=== PATIENT | female | born 1965 | race Caucasian/White ===

== ENCOUNTER 2023-08-06 18:09 | Inpatient (IN) | payer SELFPAY ==
[2023-08-06] VITALS (26 sets, daily range): BP systolic 120–168; BP diastolic 59–94; BMI 35.2; BMI 34.6
[2023-08-06 11:38] LABS: HCG, Serum Qualitative Screen Negative
[2023-08-06 11:39] LABS: ALT (SGPT) < 10 U/L (0-35); AST (SGOT) 18 U/L (14-36); Albumin 3.9 g/dl (3.5-5.0); Alkaline Phosphatase 148 U/L (38-126); Blood Urea Nitrogen 8 mg/dl (7-17); Calcium 9.9 mg/dl (8.4-10.2); Carbon Dioxide 24 mmol/L (22-30); Chloride 102 mmol/L (98-107); Glucose 112 mg/dl (70-99); Potassium 3.1 mmol/L (3.5-5.1); Sodium 137 mmol/L (135-145); Total Protein 6.8 g/dl (6.3-8.2); eGFR > 60.00
[2023-08-06 11:47] LABS: % Basophils 0.3 % (0-2); % Eosinophils 3.7 % (0-6); % Immature Granulocytes 0.8 % (0-0.5); % Lymphocytes 19.9 % (20.5-51.1); % Neutrophils 69.3 % (42.2-75.2); Absolute Eosinophils 0.4 10^3/uL (0-0.7); Absolute Immature Granulocytes 0.1 10^3/uL (0-0.05); Absolute Monocytes 0.6 10^3/uL (0.1-0.6); Mean Corp Hgb Conc. 25.6 g/dL (33.0-37.0); Mean Corpuscular Hgb 17.2 pg (27.0-31.0); Mean Corpuscular Volume 67.2 fL (81.0-99.0); Mean Platelet Volume 10.1 fL (7.4-10.4); Nucleated Red Blood Cells % 0.3 %; Platelet Count 467 10^3/uL (130-400); Red Blood Cell Count 1.86 10^6/uL (4.20-5.40); Red Cell Dist. Width 18.7 % (11.5-14.5); White Blood Cell Count 10.1 10^3/uL (4.8-10.8)
[2023-08-06 11:53] LABS: Hematocrit 12.5 % (37.0-47.0); Hemoglobin 3.2 g/dL (12.0-16.0)
--- NOTE | 2023-08-06 12:01 | ED.GENMED ---
History of Present Illness
General
Chief Complaint: Weakness
Time Seen by Provider: 08/06/23 12:01
Travel History
Have you had any contact with someone who has COVID-19?: No
Do you have any symptoms of coronavirus? Fever > 100 degrees, chills, cough, shortness of breath, sore throat, loss of taste or smell, muscle aches, or headache?: No
History of Present Illness
History of Present Illness:
HPI: Patient presents due to weakness. This been going on for several months. She says that this is caused shortness of breath as well. She says that she has had vaginal bleeding over the past couple months. She has not been to any doctors in
the past 7 years or so.
EXAM:
GENERAL: Appears generally weak and pale
HEENT: Moist oral mucosa, conjunctival pallor
CARDIOVASCULAR: No murmurs, mildly tachycardic heart rate with regular rhythm, No chest wall tenderness
PULMONARY: No respiratory distress, breath sounds are clear and equal
ABDOMEN: Soft with no peritoneal signs, no tenderness, negative rectal examination with brown stool
: I performed a brief bimanual exam and could not palpate any definite cervical mass however there was a very large amount of blood in the vagina during examination
NEUROLOGIC: Excellent strength all extremities, no coordination deficits
PSYCHIATRIC: Appropriate mental status, normal insight and judgement
EXTREMITIES: Nontender, no edema, moves all extremities equally
SKIN: Pale
ED COURSE:
12:15 PM: I initially evaluated patient
NUMBER AND COMPLEXITY OF PROBLEMS ADDRESSED AT THE ENCOUNTER
� Chronic conditions affecting care: History of hypothyroidism, has been told that she has been 'anemic in the past'
� Acute Exacerbation and/or Progression of Chronic Illness: This is an acute problem
� Differential Diagnosis includes: Symptomatic anemia, uterine mass/bleeding,
AMOUNT AND/OR COMPLEXITY OF DATA TO BE REVIEWED AND ANALYZED
� I performed an independent evaluation of and my interpretation is:
EKG: Sinus 96, axis deviation, frequent ventricular ectopy, QTc is 495
CT:
X-rays:
Laboratory Studies: Hemoglobin 3.2, hematocrit 12.5
Other: Ultrasound suggests cervical mass
� Review of other/old records: No old records available for review in [facility]
� Clinical information was obtained by an independent historian: Spoke to at bedside
� Prescriptions/Medications Considered but not given:
� Further testing considered but not performed:
RISK OF COMPLICATIONS AND/OR MORBIDITY OR MORTALITY OF PATIENT MANAGEMENT
� Social determinants of health affecting care: Lives at home
� Discussion with other providers: Hospitalist for admission at 12:45 PM; I also spoke to Dr. Tran who had planned on seeing the patient in the ED but called away for delivery. Pending Guynn consult as of 4:10 PM but
ultimately will be seen by Repair Technician [place] while in the hospital as a political consultant.
� Escalation of care including admission/observation vs risk of discharge considered: The patient's initial hemoglobin was only 3.2. Her heart rate spontaneously came down to under 100 and she has been normotensive to
hypertensive. She was given blood emergently.
Phy Exam
Physical Exam
Physical Exam:
See HPI
Course
Orders/Labs/Results
Orders:
Orders
08/06/23 11:03
Test Result ONCE
08/06/23 11:09
Type+Screen Urgent
Complete Blood Count/With Diff Urgent
Comprehensive Metabolic Panel Urgent
Ferritin Urgent
Comment: ADD ON
Free T4 Urgent
HCG, Serum Qualitative Screen Urgent
Iron Urgent
Comment: ADD ON
TSH Reflex To Free T4 Urgent
Comment: ADD ON
Total Iron Binding Urgent
Comment: ADD ON
08/06/23 11:57
EKG [Electrocardiogram (*1)] Urgent
Reason for Study: Fatigue / Weakness
EKG- Treatment ONCE
08/06/23 12:02
Add On- LAB Urgent
Tests Added?: iron panel, TIBC, ferritin
08/06/23 12:07
CBC/No Diff [Complete Blood Count/No Diff] Urgent
08/06/23 12:10
* Blood Bank Products Urgent
Blood Bank Products: *Packed RBC Leuko(PRBC's)
Quantity: 4
Transfuse Today: Yes
Reason: Anemia
08/06/23 12:11
US Pelvis W Transvag Combined Urgent
Reason For Exam: severe anemia; VB
08/06/23 12:39
Add On- LAB Urgent
Tests Added?: tsh reflex fT4
08/06/23 12:43
Potassium Chloride [KCl] 40 meq PO NOW STA
Abnormal Lab Results
08/06/23 08/06/23
11:09 12:07
RBC 1.86 L 10^6/uL 2.10 L 10^6/uL
(4.20-5.40) (4.20-5.40)
Hgb 3.2 L* g/dL 3.5 L* g/dL
(12.0-16.0) (12.0-16.0)
Hct 12.5 L* % 13.6 L* %
(37.0-47.0) (37.0-47.0)
MCV 67.2 L fL 64.8 L fL
(81.0-99.0) (81.0-99.0)
MCH 17.2 L pg 16.7 L pg
(27.0-31.0) (27.0-31.0)
MCHC 25.6 L g/dL 25.7 L g/dL
(33.0-37.0) (33.0-37.0)
RDW 18.7 H % 18.7 H %
(11.5-14.5) (11.5-14.5)
Plt Count 467 H 10^3/uL 476 H 10^3/uL
(130-400) (130-400)
Abs Immat Gran (auto) 0.1 H 10^3/uL
(0-0.05)
Absolute Neuts (auto) 7.0 H 10^3/uL
(1.4-6.5)
Immature Gran % 0.8 H %
(0-0.5)
Lymphocytes % 19.9 L %
(20.5-51.1)
Potassium 3.1 L mmol/L
(3.5-5.1)
Creatinine 0.5 L mg/dL
(0.6-1.0)
Glucose 112 H mg/dl
(70-99)
Iron 34 L ug/dl
(37-170)
% Saturation 6 L %
(20-50)
Ferritin 3.7 L ng/ml
(11.1-264.0)
Alkaline Phosphatase 148 H U/L
(38-126)
TSH (Reflex) 21.80 H uIU/ml
(0.47-4.68)
Crossmatch IS Only See Detail
08/06/23 12:07
08/06/23 11:09
Vital Signs
Initial and Last Documented VS:
Initial Vital Signs
Temp Pulse Resp BP Pulse Ox
98.2 F 106 16 120/65 95
08/06/23 10:59 08/06/23 10:59 08/06/23 10:59 08/06/23 10:59 08/06/23 10:59
Last Documented Vital Signs
Temp Pulse Resp BP Pulse Ox
100.1 F 83 15 136/70 100
08/06/23 16:04 08/06/23 16:04 08/06/23 16:04 08/06/23 16:04 08/06/23 16:04
*Critical Care Note
Total Time (30-74mins, 75-104mins- exclusive of procedures): 60 minutes
comment:
The patient presents with critically low hemoglobin and was emergently transfused�I have ordered 4 units. She has remained hemodynamically stable. She did have vaginal bleeding earlier over the past several months. Cervical mass found on imaging.
Gynecology has been emergently consulted. I had several discussions with gynecology and internal medicine.
ED Attending Note
-
Portions of this chart may have been created with voice recognition software.� Occasional wrong word or��sound alike� substitutions may have occurred due to the inherent limitations of voice recognition software.
Discharge Plan
Departure
Patient Disposition: Admit
Date of Disposition: 08/06/23
Time of Disposition: 12:46
Presentation/result/management discussed w/ accepting MD/DO: Hospitalist
Discharge Problem:
Symptomatic anemia
Prescriptions:
No Action
ibuprofen [Advil] 200 mg Tablet
600 mg PO TIDPRN PRN (Reason: mild pain)
Referrals:
NONE,* [Family Provider] -
Interventions
Interventions:
*Risk Screen - Suicide Last Done: 08/06/23 12:10
*General Assessment Last Done: 08/06/23 12:04
*Neglect/Abuse Screening Last Done: 08/06/23 12:18
ED- Fall Risk Assessment Last Done: 08/06/23 12:04
*ED COVID-19 Vaccine History Last Done: 08/06/23 12:10
ED- Cardiac Assessment Last Done: 08/06/23 12:11
ED- Neurological Assessment Last Done: 08/06/23 12:12
ED- Pulmonary Assessment Last Done: 08/06/23 12:12
[2023-08-06 12:09] LABS: Anisocytosis 1+; Hypochromasia 3+; Normal RBC Morphology No; Ovalocytes 2+; Polychromasia 1+
[2023-08-06 12:10] LABS: Acanthocytes FEW; Tear Drop Red Blood Cells FEW
--- NOTE | 2023-08-06 12:26 | EDRN ---
Per ER Dr Roberto verbal order, the pt was given a large cup of water to drink in order to fill her bladder for ordered pelvic ultrasound. The pt was told not to get out of bed or exert herself due to critically low hemoglobin. the pt
verbalized understanding of all instructions. family is present at bedside. this TALLIER will continue to monitor this pt closely.
[2023-08-06 12:28] LABS: Mean Corp Hgb Conc. 25.7 g/dL (33.0-37.0); Mean Corpuscular Hgb 16.7 pg (27.0-31.0); Mean Corpuscular Volume 64.8 fL (81.0-99.0); Mean Platelet Volume 9.6 fL (7.4-10.4); Platelet Count 476 10^3/uL (130-400); Red Cell Dist. Width 18.7 % (11.5-14.5); White Blood Cell Count 10.5 10^3/uL (4.8-10.8)
[2023-08-06 12:34] LABS: Iron 34 ug/dl (37-170)
[2023-08-06 12:43] LABS: Percent Saturation 6 % (20-50); Total Iron Binding Capacity 490 ug/dl (265-497)
[2023-08-06 12:48] LABS: Hematocrit 13.6 % (37.0-47.0); Hemoglobin 3.5 g/dL (12.0-16.0)
[2023-08-06] MEDS: KCL 40 MEQ PO (13:13)
--- NOTE | 2023-08-06 14:00 | EDRN ---
the pt had a large blood clot and approx 2 cups of vaginal bleeding suddenly pass vaginally at this time, blood is bright red. this FINANCE MGR brought ER Dr Roberto to the bedside immediately. Viry care was provided to the pt and the pt was placed
in an adult brief. vial signs are within normal limits. this FINANCE MGR will continue to monitor the pt.
[2023-08-06 14:43] LABS: Ferritin 3.7 ng/ml (11.1-264.0)
[2023-08-06 16:52] LABS: Glucose - Point of Care 104 mg/dl (70-99)
[2023-08-06 17:03] LABS: Free T4 0.85 ng/dl (0.78-2.19)
--- NOTE | 2023-08-06 17:52 | HPS.HSE ---
Addendum entered and electronically signed by Diana Gibson MD 08/06/23 18:21:
I saw and examined the patient.
The BAG BAILER or PA's note was reviewed and I agree with the note.
Comment:
Pale
Abdomen: Soft, NT / Bowel sounds present
Extremities: No edema, normal pulses
Watched pelvic exam with gynecology cervical mass, bleeding with clots
Pelvic ultrasound-There is a 5.2 centimeter vascular hypoechoic mass at the cervix which is high level suspicion for cervical carcinoma.
Endometrial carcinoma is less likely but included in the differential diagnosis
# 57-year-old with fatigue presented with severe anemia
Severe symptomatic chronic blood loss anemia
Transfuse 4 units and follow hemoglobin if needed give more blood
# Vaginal bleeding concerning for cervical cancer
SOIL FERTILITY EXTENSION SPECIALIST consult appreciated
SOIL FERTILITY EXTENSION SPECIALIST oncology consult
CT of the chest abdomen pelvis
Patient does not report much weight loss
Vaginal packing being placed
Vigil catheter placed because of that
Hemodynamically stable
Iron deficiency IV iron
# Hypokalemia-replace potassium and check mag
# Elevated TSH
Repeat in the morning before starting thyroid hormones
# Mild thrombocytosis likely secondary to severe anemia
# Slightly prolonged QTc likely secondary to hypokalemia. Check magnesium. Following daily
No symptoms
# SCDs for DVT prophylaxis
# Full code
Discussed with SOIL FERTILITY EXTENSION SPECIALIST at bedside
Original Note:
Family Physician
-
Family Physician: * NONE
Chief Complaint
-
Weakness and Shortness of Breath
History of Present Illness
Patient is a 57 y/o female with PMH of fibromyalgia and chronic fatigue who presents complaining of weakness, SOB, and vaginal bleeding since February 2023. Patient reports having daily vaginal bleeding and passing many large clots about every 7
days which is followed by 45 minutes of steady thin bleeding. She has had worsening SOB with minimal exertion -- she shaved her hair in May due to inability to brush her hair. She has not received medical care in the past 7 years and her last
PAP smear was 20 years ago which she says was normal. She has been taking Ibuprofen 600 mg BID x 10 days for worsening lower abdominal cramping. Work-up in ED revealed significant anemia as well as cervical mass. Hospitalist group was asked to
evaluate the patient for admission to the hospital.
Medical History
Past Medical History
Past Medical History: Reports Other
Additional Past Medical History:
Fibromyalgia
Hypothyroidism
Past Surgical History: Reports Tonsilectomy
Social History
Tobacco: Former Smoker (Quit about 9 years ago)
Drug: Marijuana
Family History
Family History: Other (Materal Grandmother and Aunts with Breast CA)
Allergies / Home Medications
Allergies reflects when Allergies were last updated in [facility].
Home Medications with original date entered in [facility]
Allergy/Medication List:
Allergies
Allergy/AdvReac Type Severity Reaction Status Date / Time
No Known Allergies Allergy Verified 08/06/23 11:02
Home Medications
ibuprofen 200 mg tablet (Advil) 600 mg PO TIDPRN PRN mild pain 08/06/23
Review of Systems
-
A 12 point ROS was completed and negative except as noted: Yes
Constitutional: Denies Fever or Chills
Respiratory: Reports Trouble Breathing; Denies Cough
Cardiac: Denies Chest Pain or Palpitations
: Reports See HPI
Neurological: Reports Dizzy and Weakness
Physical Exam
Vital Signs
Vital Signs
Temp Pulse Resp BP Pulse Ox
100.1 F 98 13 136/71 100
08/06/23 17:44 08/06/23 17:44 08/06/23 17:44 08/06/23 17:44 08/06/23 17:44
Physical Exam
General: Comfortable and Conversant
HEENT: Anicteric and Moist mucous membranes
Respiratory: Clear and Non Labored Respirations
Cardiac: S1/S2 and Regular Rhythm
GI: Soft and Non Tender
Rectal: Hem Negative (Per ED Provuder)
Genito-urinary: Deferred by me
Musculoskeletal: No Clubbing, No Cyanosis and No Edema
Skin: Warm and Dry
Neuro: Awake, Alert, Oriented and Nonfocal/grossly intact
Laboratory Results
-
08/06/23 11:09
Laboratory Results
Total Bilirubin 1.0 mg/dl (0.2-1.3) 08/06/23 11:09
AST 18 U/L (14-36) 08/06/23 11:09
ALT < 10 U/L (0-35) 08/06/23 11:09
Alkaline Phosphatase 148 U/L (38-126) H 08/06/23 11:09
Data Reviewed
-
Lab Data: Labs Reviewed by me
Impression/Plan
-
Severe Symptomatic Blood Loss Anemia
-Transfuse 4 units PRBCs
-Monitor Hgb closely
Vaginal Bleeding, Abd US raises concern for Cervical Cancer
-Consult Gynecology and SOIL FERTILITY EXTENSION SPECIALIST Oncology
-Check Chest/Abd/Pelvis CT scan
Hypokalemia
-Replace potassium
-Check magnesium
Elevated TSH, possible sick euthyroid vs hypothyroid
-Recheck TSH with Free T4 in AM
DVT proph: SCDs
Code Status: Full Code
[2023-08-06 18:00] LABS: Magnesium 2.3 mg/dl (1.6-2.3)
[2023-08-06] MEDS: OMNIPAQUE 50 ML PO (18:34)
[2023-08-06 18:35] LABS: Folate 9.7 ng/ml (2.76-20); Vitamin B12 408 pg/ml (239-931)
--- NOTE | 2023-08-06 18:45 | PTCARENOTE ---
Received pt from ER.Pt awake, alert and oriented x3. Pt has no c/o pain just some discomfort from vaginal packing, tolerable at this time. VSS 100% on RA. NSR with PVCs on tele. Pt has vera cath in place, draining yellow urine, Vaginal bleeding
noted, aware, Brief in place to monitor bleeding. Pt oriented to room, call brown within reach, plan of care ongoing.
[2023-08-06 20:16] LABS: Hematocrit 24.4 % (37.0-47.0)
--- NOTE | 2023-08-06 20:21 | CON.MD ---
Consultation - Medical
-
57 yo female seen in ED earlier today presented with dizziness, lightheadedness and c/o abnormal vaginal bleeding for months. Found to have severe anemia with hgb 3.2 on admit. Pelvic US demonstrated a cervical mass and ED doctor also reported
pt noted to have some vaginal bleeding after returning from ultrasound and mass was noted on vaginal exam performed by ED MD. Reports some pelvic cramping, no significant abdominal pain, no back pain, difficulty with urination or BM. Denies
constipation, nausea, vomiting. Admits to decreased appetite and some unintended weight loss.
Full consult will be dictated
Pt reports having abnormal uterine bleeding lasting most days of the month since Jan 2023. Heavy and clotty at times. She has not had any routine check cashier care for over 20 yrs. Does not follow with PCP.
Reports became increasingly weak, with dyspnea on exertion and difficulty standing up. Came to ED.
PMH: fibromyalgia, chronic fatigue, hypothyroidism (not seeing any provider for this/no meds), hypoglycemia
PSH: wisdom teeth, tympanoplasty, myringotomy tubes, T&A
OBHx: 2 - 28 and 23 yrs ago
NKDA
Meds: none
Sochx: reports using cannabis 1-2 times daily for fibromyalgia, denies tobacco, alcohol only a few times yrly.
Famhx: 2 maternal aunts and MGM-breast cancer
ROS: does not add to above HPI
PE:
Pale appearing pleasant female
VS:
abd: soft, rotund, nontender, nondistended
vulva: no lesions
Speculum exam: some bright red blood in vagina, moderate amount. Tumor noted distending cervix. Barrel shaped cervix. Cervical mass approx 5-6 cm by palpation. Tumor extends close to vaginal side wall on right.
There is some tumor free space posterior and on left.
Uterus nontender, not enlarged.
No adnexal fullness noted.
Labs reviewed. Admission hgb 3.2 hcg neg
TSH 21, T4 normal
Pelvic US: uterus 7.9 x2.8 x 3.6 cm with suboptimal visualization of endometrial lining. Cervix has hypoechoic mass 5.2 x 4.4 x 4.9 cm. No adnexal mass. Ovaries normal size, no mass. No pelvic free fluid.
Assessment:
1. Cervical mass/ suspected cervical carcinoma
2. vaginal bleeding related to above
3. severe profound anemia related to chronic blood loss related to tumor bleeding
4. hypohyroidism
5. EKG with prolonged QT, NSR and some PVCs.
Plan:
1. Pap collected, vera 14 Georgian placed and vaginal packing placed for tamponade.
2. Consulted and spoke with Dr. Knowles. Ordered CT chest, Abd/pelvis with Oral and IV contrast to look for metastatic disease, tumor involvement. Ordered additional labs: amylase, lipase, b12, folate, PT/INR.
Pt will need Exam under anesthesia, cystoscopy, sigmoidoscopy, cervical bx. Dr. Knowles will be performing.
3. Med onc consult-tiger texted Dr. Rojas-aware.
4. Will need cardiac clearance for surgery. Can consult tomorrow.
5. Will need mammogram in near future.
Reviewed findings with Nolvia and emotional support provided. I did discuss cervical tumor and likelihood of cancer dx. Her had a stroke and she is primary caregiver for her family. She is concerned about them.
Reviewed with hospitalist Marleny ALVARADO and also Dr. Hernandez.
time 60 min, face to face, consulting time, documentation and coordinating care.
[2023-08-06 21:06] LABS: Amylase 43 U/L (30-110); Lipase 57 U/L (23-300)
[2023-08-06 21:31] LABS: Glucose - Point of Care 103 mg/dl (70-99)
[2023-08-06 21:39] LABS: Urine Albumin Negative (Neg - Trace); Urine Bilirubin Negative (Negative); Urine Character Clear (Clear); Urine Color Yellow; Urine Glucose Negative (Negative); Urine Ketone Negative (Negative); Urine Leukocyte 2+ (Negative); Urine Nitrite Negative (Negative); Urine Occult Blood 1+ (Negative); Urine Specific Gravity 1.005 (<1.030); Urine Urobilinogen Negative (Neg - 1+)
[2023-08-06 21:47] LABS: INR 1.19; PT 15.2 Sec (11.4-14.6)
[2023-08-06 21:53] LABS: Urine Bacteria Moderate (Negative); Urine Squamous Cell 0-2 /LPF (Few); Urine White Cell 21-25 /HPF (0-5)
[2023-08-07 01:05] VITALS: BP 135/63
[2023-08-07 03:15] VITALS: BP 115/62
[2023-08-07 07:00] VITALS: BP 134/74
[2023-08-07 07:14] LABS: Hematocrit 25.2 % (37.0-47.0); Hemoglobin 8.3 g/dL (12.0-16.0); Mean Corp Hgb Conc. 32.9 g/dL (33.0-37.0); Mean Corpuscular Hgb 24.9 pg (27.0-31.0); Mean Platelet Volume 9.8 fL (7.4-10.4); Platelet Count 339 10^3/uL (130-400); Red Blood Cell Count 3.34 10^6/uL (4.20-5.40); Red Cell Dist. Width 18.6 % (11.5-14.5); White Blood Cell Count 11.9 10^3/uL (4.8-10.8)
[2023-08-07 07:20] LABS: Mean Corpuscular Volume 75.4 fL (81.0-99.0)
[2023-08-07 08:28] LABS: Blood Urea Nitrogen 5 mg/dl (7-17); Calcium 8.5 mg/dl (8.4-10.2); Carbon Dioxide 22 mmol/L (22-30); Chloride 108 mmol/L (98-107); Estimated Creatinine Clearance 116 ml/min; Glucose 96 mg/dl (70-99); Magnesium 2.2 mg/dl (1.6-2.3); Potassium 3.4 mmol/L (3.5-5.1); Sodium 134 mmol/L (135-145); eGFR > 60.00
--- NOTE | 2023-08-07 09:02 | CON.ONC ---
Addendum entered and electronically signed by Elias Bowie DO 08/07/23 14:04:
Chart reviewed and patient examined independently. Agree with impression and plan as outlined by VÍCTOR. Anticipate further evaluation by ADJUNCT ENGLISH INSTRUCTOR oncology in the operating room tomorrow. Replete iron deficiency and transfuse to maintain hemoglobin
greater than 7.5 g/dL.We put her on IV iron.
Original Note:
Impression
Impression
Severe symptomatic blood loss anemia
Cervical mass
Vaginal bleeding
Thrombocytosis
Hypothyroidism
Iron deficiency
Weakness
Plan
Plan
Hgb 8.3 s/p 4units blood
Transfuse as needed to maintain Hgb >7.5
CBC with diff daily, serial H/H
Monitor for bleeding
B12, folate supplement
IV iron ordered
Print Shop Stenographer/Onc consult, PRESSING DEPARTMENT SUPERVISOR following
Plan for full exam under anesthesia with biopsy
Await cervical biopsy
Emotional support
Psych evaluation
Will need mammogram arranged outpatient
We will follow
Patient History
History of Present Illness
Nolvia Collins is a 57 year old female who presented to the ER yesterday, 08/06, with complaints of fatigue, profound weakness, SOB, and vaginal bleeding since Feb 2023. She states she has been passing large clots weekly with steady vaginal
bleeding that follows. She has not received medical care in at least 7 years. She has been taking Ibuprofen as needed for lower abdominal cramping. She was profoundly anemic on presentation with Hgb of 3.2. She received 4 units of blood thus far
with adequate response. PRESSING DEPARTMENT SUPERVISOR was consulted due to large mass within the cervix concerning for neoplasm seen on imaging. She admits to unintentional weight loss and poor appetite. She has been admitted for further evaluation and treatment.
Past-Medical/Surgical History
Fibromyalgia w/ medical marijuana use
Chronic fatigue
Chronic pain
Hypothyroidism
Hx Tympanoplasty
Hx Myringotomy tubes
Strong family hx of cancer
Progressive weakness
Patient Medication
Medication Instructions Recorded Confirmed Last Taken Type
ibuprofen 200 mg tablet (Advil) 600 mg PO TIDPRN PRN mild pain 08/06/23 08/06/23 08/05/23 History
Active Medications
Generic Name Dose Route Start Last Admin
Trade Name Freq PRN Reason Stop Dose Admin
Acetaminophen 650 mg 08/06/23 18:56
Acetaminophen 325 Mg Tablet PO 09/03/23 18:55
Q4HPRN PRN
mild pain/ fever>100.5F
Ferric Sodium Gluconate 110 mls @ 110 mls/hr 08/07/23 14:00
Complex 125 mg/ Sodium IV 08/11/23 14:59
Chloride DAILY@1400 LIZZIE
Sodium Chloride 0 flush 08/06/23 19:00
Sodium Chloride 0.9% (Flush) Syringe IV 09/03/23 18:59
PER PROTOCOL LIZZIE
Review of Systems
-
History Source: Patient and Coordinated Provider
Constitutional: Reports No Appetite, Fatigue and Weakness
EENT: Reports No Symptoms
Respiratory: Reports No Symptoms
Cardiac: Reports No Symptoms
GI: Reports Abdominal Pain
Breast: Reports N/A
: Reports Vaginal Bleeding
Musculoskeletal: Reports Edema
Skin: Reports No Symptoms
Neuro: Reports Weakness
Endocrine: Reports No Symptoms
Hematologic/Lymphatic: Reports No Symptoms
Allergy / Immunology: Reports No Symptoms
Psych: Reports No Symptoms
Physical Exam
-
Patient is resting in bed. Nursing performing AM care. patient incontinent of stool. patient reports mildly crampy lower abdominal discomfort. she is requesting Ibuprofen.
General: Well Developed, Well Nourished, No Apparent Distress, Comfortable, Conversant and Appears Chronically Ill
HEENT: Negative Jaundice
Cardiology: S1 and S2
Pulmonary: Clear
GI: Normal Bowel Sounds
Genito-Urinary: Vigil
Musculoskeletal: Edema, Right Lower Extrem (+1) and Edema, Left Lower Extrem (+1)
Extremities: Pulses Present
Neurology: Non Focal
Skin: Warm, Dry and Other (pallor)
Psych: Calm and Other (tearful)
Labs
Lab Results
WBC 11.9 10^3/uL (4.8-10.8) H 08/07/23 06:58
RBC 3.34 10^6/uL (4.20-5.40) L 08/07/23 06:58
Hgb 8.3 g/dL (12.0-16.0) L 08/07/23 06:58
Hct 25.2 % (37.0-47.0) L 08/07/23 06:58
MCV 75.4 fL (81.0-99.0) L D 08/07/23 06:58
MCH 24.9 pg (27.0-31.0) L 08/07/23 06:58
MCHC 32.9 g/dL (33.0-37.0) L 08/07/23 06:58
RDW 18.6 % (11.5-14.5) H 08/07/23 06:58
Plt Count 339 10^3/uL (130-400) D 08/07/23 06:58
MPV 9.8 fL (7.4-10.4) 08/07/23 06:58
Abs Immat Gran (auto) 0.1 10^3/uL (0-0.05) H 08/06/23 11:09
Absolute Neuts (auto) 7.0 10^3/uL (1.4-6.5) H 08/06/23 11:09
Absolute Lymphs (auto) 2.0 10^3/uL (1.2-3.4) 08/06/23 11:09
Absolute Monos (auto) 0.6 10^3/uL (0.1-0.6) 08/06/23 11:09
Absolute Eos (auto) 0.4 10^3/uL (0-0.7) 08/06/23 11:09
Absolute Basos (auto) 0.0 10^3/uL (0-0.2) 08/06/23 11:09
Immature Gran % 0.8 % (0-0.5) H 08/06/23 11:09
Neutrophils % 69.3 % (42.2-75.2) 08/06/23 11:09
Lymphocytes % 19.9 % (20.5-51.1) L 08/06/23 11:09
Monocytes % 6.0 % (1.7-9.3) 08/06/23 11:09
Eosinophils % 3.7 % (0-6) 08/06/23 11:09
Basophils % 0.3 % (0-2) 08/06/23 11:09
Creatinine 0.5 mg/dL (0.6-1.0) L 08/07/23 06:58
Vital Signs
Vital Signs
Temp Pulse Resp BP Pulse Ox
98.4 F 73 18 134/74 98
08/07/23 07:00 08/07/23 07:00 08/07/23 07:00 08/07/23 07:00 08/07/23 07:00
08/06 Transvaginal US: There is a 5.2 centimeter vascular hypoechoic mass at the cervix which is high level suspicion for cervical carcinoma.
Endometrial carcinoma is less likely but included in the differential diagnosis
08/06 CT c/a/p: Large mass within the lower uterine segment/cervix suspicious for neoplasm.No evidence for metastatic disease in the chest, abdomen or pelvis.Mass-like soft tissue expansion of the lower uterine segment/cervix measuring up to 5.8 x
6.6 x 5.2 cm. Mild adjacent edema.
[2023-08-07] MEDS: VITAMIN B-12 1000 MCG PO (09:55)
[2023-08-07] MEDS: FOLVITE 1 MG PO (09:55)
--- NOTE | 2023-08-07 10:27 | CM ---
Patient seen bedside, initial assessment completed. Patient reports she resides in a multiple story home with her , son, and parents. Patient denies DME, VN, or SNF. Patient reports she has not seen a PCP in years and is interested in a list
of local PCP's. Patient confirmed pharmacy is [facility] in [place]. CM received consult for insurance issues, per patient, she did have [employer] [facility] but did not complete the needed documentation and the insurance lapsed. CM spoke with Bhavya
from [facility], provided patients account number for Bhavya to look into. CM will continue to follow for discharge planning needs.
Plan; watch for needs upon d/c, [facility] aware of patient
[2023-08-07 11:00] VITALS: BP 132/71
[2023-08-07] MEDS: TYLENOL 650 MG PO (12:26)
[2023-08-07] MEDS: FERRLECIT 110 MG IV (14:03)
[2023-08-07] MEDS: ULTRAM 50 MG PO (14:03)
[2023-08-07 15:16] VITALS: BMI 34.6
--- NOTE | 2023-08-07 15:19 | PTCARENOTE ---
Pt left the floor via stretcher for an US and Echo for pre-op testing.
--- NOTE | 2023-08-07 16:34 | CON.CAR ---
Addendum entered and electronically signed by Huyen Ko, 08/08/23 12:01:
Updated patient with echocardiogram results
Addendum entered and electronically signed by Huyen Ko, 08/07/23 17:31:
I saw and examined the patient.
The Wet Cotton Feeder's note was reviewed and I agree with the note.
Comment: Nolvia is a 57-year-old female with past medical history of fibromyalgia and hypothyroidism who presented to ER for evaluation of dizziness, lightheadedness and vaginal bleeding.� She was found to be severely anemic with hemoglobin of
3.2 on admission.� She had pelvic ultrasound which showed cervical mass, this was confirmed on pelvic exam in ER, concern for cervical carcinoma.� Cardiology evaluation requested Preoperative cardiac risk assessment prior to cervical biopsy, D&C,
cystoscopy, and proctoscopy which is planned for tomorrow, 08/08/[address] Benjy Knowles.� She has no acute cardiac complaints.� She has no history of known cardiovascular disease. She is a lifelong non-smoker. Until recently she was active with
regular walking and greenhouse technician/activities without cardiac symptoms. EKG checked on arrival with mildly prolonged QTc at 495ms in the setting of severe anemia and hypokalemia. No history of anesthesia related complications although no recent
surgeries. No family history for premature coronary artery disease, cardiomyopathy, or sudden cardiac
General: No acute distress, AAOX3
Neck: Negative JVD. No bruit
Heart: Regular, Negative S3 positive S1/S2, Negative S4, No murmur
Lungs: CTA b/l, negative wheezes/rales/rhonchi
Abd: Positive BS, NT/ND, neg rebound/rigidity/guarding
Ext: Negative cyanosis/clubbing/edema
Neuro: nonfocal
Plan:
Preoperative cardiac risk assessment prior to D&C, biopsy, cystoscopy, and proctoscopy tomorrow, 08/08/[address] Knowles for cervical mass
-Patient presented with vaginal bleeding and severe symptomatic anemia, hemoglobin on arrival 3.2 g/dL
-Hemoglobin has improved with transfusion. Hemoglobin today 8.3 in AM s/p 4 units PRBCs.
-Initial EKG reviewed shows sinus rhythm with PVCs. QT [address]-T wave abnormalities. EKG in the setting of severe anemia and hypokalemia
-Lower extremity Doppler negative for DVT
-Spoke with nursing for repeat EKG, pending
-2D echocardiogram with normal biventricular size and systolic function without hemodynamically significant valve pathology
-Functional capacity prior to within the last year hospitalization had been average, estimated 7 METS without cardiac symptoms
-Monitor hemoglobin and electrolytes closely in the postoperative period
-She is low risk and may proceed with surgery as planned
Original Note:
Consultation
Consultation Request
Date/Time Consultation Requested: 08/07/2023
Date/Time Consultation Performed: 08/07/2023 at 1630
Requesting Provider: Dr. Gibson
Performing Provider: Dr. Ko
Reason for Consultation: Pre-op cardiac eval
Medical History
-
History of Present Illness:
HPI: Nolvia is a 57-year-old female with past medical history of fibromyalgia and hypothyroidism who presented to ER for evaluation of dizziness, lightheadedness and vaginal bleeding. She was found to be severely anemic with hemoglobin of 3.2 on
admission. She had pelvic ultrasound which showed cervical mass, this was confirmed on pelvic exam in ER. She was admitted for further workup and evaluation. Concern for cervical carcinoma. Cardiology evaluation requested prior to cervical
biopsy, D&C, cystoscopy, and proctoscopy which is planned for tomorrow, 08/07. She has no acute cardiac complaints. EKG checked on arrival with mildly prolonged QTc at 495ms in the setting of severe anemia and hypokalemia.
PMH:
Fibromyalgia
Hypothyroidism
Past Medical History
Past Medical History: Other (In HPI)
Past Surgical History: Other (wisdom teeth, tympanoplasty)
Social History
Tobacco: Non-Smoker
Alcohol: Occasional
Drug: Marijuana
Personal:
Living: With Family
Family History
Family History: Cancer
Allergies / Home Medications
Allergy/AdvReac Type Severity Reaction Status Date / Time
No Known Allergies Allergy Verified 08/06/23 11:02
Medication Instructions Recorded Confirmed Type
ibuprofen 200 mg tablet (Advil) 600 mg PO TIDPRN PRN mild pain 08/06/23 08/06/23 History
Review of Systems
-
History Source: Patient
All other systems: Negative unless noted
Physical Exam
Vital Signs
Temp Pulse Resp BP Pulse Ox
98.1 F 84 18 132/71 100
08/07/23 11:00 08/07/23 11:00 08/07/23 11:00 08/07/23 11:00 08/07/23 11:00
Lab Results
08/07/23 06:58
08/07/23 06:58
Impression / Plan
-
Induction Brazer: None prior to arrival, initially seen by Dr. Ko
Impression:
Presented with weakness
Severe symptomatic anemia
Vaginal bleeding, concern for cervical cancer
Hypokalemia
Prolonged QTc on EKG
Fibromyalgia
Hypothyroidism
Echo 08/07/2023: EF 54%, no RWMA, no significant valvular disease
Plan:
-Presented with weakness and vaginal bleeding. Hemoglobin 3.2 on arrival. Improved to 8.3 in AM s/p 4 units PRBCs.
-Pelvic US noted 5.2 cm mass at the cervix, concerning for cervical cancer. Plan is for D&C, biopsy, cystoscopy, and proctoscopy tomorrow, 08/07 for further evaluation.
-MRI of pelvis pending
-Cardiology evaluation requested prior to procedure in AM. She has no cardiac history and has no cardiac complaints.
-EKG reviewed and shows SR with QTc 495 ms. This was in the setting of severe anemia and hypokalemia.
-Repeat EKG pending.
-Echo checked and showed preserved EF with no significant valvular disease
-Continue to follow hemoglobin and transfuse as needed
-BP and HR stable.
-LE US negative for DVT.
HPI: Nolvia is a 57-year-old female with past medical history of fibromyalgia and hypothyroidism who presented to ER for evaluation of dizziness, lightheadedness and vaginal bleeding. She was found to be severely anemic with hemoglobin of 3.2 on
admission. She had pelvic ultrasound which showed cervical mass, this was confirmed on pelvic exam in ER. She was admitted for further workup and evaluation. Concern for cervical carcinoma. Cardiology evaluation requested prior to cervical
biopsy, D&C, cystoscopy, and proctoscopy which is planned for tomorrow, 08/07. She has no acute cardiac complaints. EKG checked on arrival with mildly prolonged QTc at 495ms in the setting of severe anemia and hypokalemia.
Data Reviewed
-
EKG: Tracing Personally Visualized and interpreted
CT Scan: Report Reviewed by me
Ultrasound: Report Reviewed by me
Medical Tests (Nuc Med, Echo etc): Report Reviewed by me
Labs: Labs Reviewed by me
--- NOTE | 2023-08-07 16:39 | W.PN.HOSP.TC ---
Today's Communication/Plan
-
MRI
Assessment / Plan
Assessment / Plan
56-year-old female with vaginal bleeding since January 2023. Heavy and with a lot of clots. She has not seen a SAP CRM DEVELOPER for at least 20 years and not followed up with PCP for a decade or more. She felt increasingly short of breath with exertion and
fatigue.
Echo 08/07/2023-LV moderately dilated. Normal LV systolic function. EF 54%. Mildly increased LV thickness. Normal diastolic function. Normal RV size and function.
CT of the chest abdomen and pelvis-large mass in the lower uterine segment/cervix suspicion for neoplasm
No evidence of metastatic disease in the chest abdomen and pelvis.
On examination awake alert
Denies any discomfort except for mild abdominal cramps.
Cardiovascular system S1-S2 appreciated
Chest clear to auscultation
Abdomen soft and nontender
No pedal edema
# Acute on chronic blood loss anemia -ymptomatic anemia
Secondary to vaginal bleeding
Patient got 4 units of packed red blood cells
Hemoglobin stable
Iron deficiency-IV iron ordered
# Bleeding-clinically looks like cervical cancer
MRI of the pelvis ordered
SAP CRM DEVELOPER oncology consulted
Patient 4 OR tomorrow for examination under anesthesia biopsy D&C, cystoscopy and proctoscopy for staging
Bleeding slowed down was done was placed in the ER by SAP CRM DEVELOPER on 07/29/2023.
Hemodynamically stable
CT scan without any evidence of metastatic disease
# Hypothyroidism-start Synthroid 25 mcg daily
Repeat thyroid function test in 4 to 6 weeks
# Abnormal urine analysis-cover with ceftriaxone until cultures are back especially since Vigil had to be placed for vaginal packing.
# Hypokalemia-replace
# Mild thrombocytosis secondary to severe anemia- better
# Slightly prolonged QTc-repeat likely secondary to hypokalemia
Echo noted
# Obesity per BMI criteria
# Recreational cannabis
# DVT -okay to place subcutaneous heparin per discussion with Dr. Knowles
# Full CODE
Discussed with cardiology
Discussed with SAP CRM DEVELOPER oncology
Discussed with patient's at bedside
Discussed with nursing
Anticipated Discharge: > 48 hours
Subjective/Interval History
-
Date of Service: August 07, 2023
Objective Data
-
Labs:
Laboratory Results
08/07/23
06:58
WBC 11.9 H
Hgb 8.3 L
Hct 25.2 L
Plt Count 339 D
Sodium 134 L
Potassium 3.4 L
Chloride 108 H
Carbon Dioxide 22
BUN 5 L
Creatinine 0.5 L
Glucose 96
Calcium 8.5
Vital Signs:
Vital Signs
Temp Pulse Resp BP Pulse Ox
98.1 F 84 18 132/71 100
08/07/23 11:00 08/07/23 11:00 08/07/23 11:00 08/07/23 11:00 08/07/23 11:00
I&O
08/06/23 08/07/23 08/08/23
06:59 06:59 06:59
Intake Total 1250 / 1250
Output Total 825 / 825
Balance 425 / 425
[2023-08-07] MEDS: SYNTHROID 25 MCG PO (17:14)
[2023-08-07] MEDS: ROCEPHIN 1000 MG IV (17:14)
[2023-08-07] MEDS: STERILE WATER FOR INJECTION 10 ML IV (17:14)
[2023-08-07] MEDS: KCL 40 MEQ PO (17:14)
[2023-08-07] MEDS: MORPHINE SULFATE 2 MG IV ×2 (17:23→23:24)
[2023-08-07] MEDS: SENOKOT PO (19:50)
[2023-08-07] MEDS: HEPARIN 5000 UNITS SC (19:50)
[2023-08-07] MEDS: COLACE PO (19:50)
[2023-08-07 20:55] VITALS: BP 135/70
[2023-08-07 21:46] LABS: Hepatitis B Surface Antigen Negative (Negative)
[2023-08-07 22:03] LABS: Hepatitis B Core Ab, Total Negative (Negative); Hepatitis B Surface Antibody Negative; Hepatitis C Antibody Negative (Negative)
[2023-08-07 22:12] LABS: Hepatitis A Antibody, Total Negative (Negative)
[2023-08-07 23:51] VITALS: BP 145/75
[2023-08-08] VITALS (12 sets, daily range): BP systolic 117–158; BP diastolic 59–78
[2023-08-08] MEDS: SYNTHROID 25 MCG PO (06:07)
[2023-08-08] MEDS: MORPHINE SULFATE 2 MG IV ×5 (07:20→23:34)
--- NOTE | 2023-08-08 07:31 | PTCARENOTE ---
Patient wiped down with CHG wipes and linens were changed. Vigil bag emptied prior to transportation. Patient complaining of abdominal pain 01/16. Medication given, see MAR. OR given report over the phone, gave the okay to give PRN pain medication.
IV abx for pre procedure sent straight to the OR from pharmacy.
[2023-08-08 07:46] LABS: Hemoglobin 8.5 g/dL (12.0-16.0); Mean Corp Hgb Conc. 31.5 g/dL (33.0-37.0); Mean Corpuscular Hgb 24.7 pg (27.0-31.0); Mean Corpuscular Volume 78.5 fL (81.0-99.0); Mean Platelet Volume 9.8 fL (7.4-10.4); Platelet Count 342 10^3/uL (130-400); Red Blood Cell Count 3.44 10^6/uL (4.20-5.40); Red Cell Dist. Width 19.5 % (11.5-14.5); White Blood Cell Count 14.5 10^3/uL (4.8-10.8)
--- NOTE | 2023-08-08 08:35 | W.SUR.PREOP ---
Pre-Operative Surgical Note
-
I have examined this patient prior to the performance of the scheduled procedure.
The patient's condition is unchanged from the time of the current History and
Physical and the patient is able to undergo the scheduled procedure.
Pt was seen by me in Preop holding area this am before surgery.
Planning to be present for surgery with Dr. Knowles.Pt aware and agrees.
--- NOTE | 2023-08-08 08:36 | W.IMMPOSTOP ---
Surgical Immed Post Op Note
-
Primary Surgeon: Savannah Tran DO
Assisting Surgeon: n/a
Pre-op Diagnosis: Cervical carcinoma
Post-op Diagnosis: same
Procedure Performed: Exam under anesthesia
Anesthesia Type: LMA Dr. Mendoza
Specimen / Cultures: collected by Dr. Knowles -see his op note
Estimated Blood Loss: 0ml
Complications: none
Operative Findings: Cervical carcinoma with gross tumor extending to vaginal mucosa in all fornices. Tumor approx 5.[address] Knowles performed cervical biopsies, cystoscopy and proctoscopy.
Counts correct times 2.
[2023-08-08 08:43] LABS: Blood Urea Nitrogen 8 mg/dl (7-17); Carbon Dioxide 23 mmol/L (22-30); Chloride 106 mmol/L (98-107); Estimated Creatinine Clearance 116 ml/min; Glucose 117 mg/dl (70-99); Potassium 3.5 mmol/L (3.5-5.1); Sodium 137 mmol/L (135-145); eGFR > 60.00
[2023-08-08] MEDS: HEPARIN 5000 UNITS SC ×2 (10:03→20:36)
[2023-08-08] MEDS: COLACE 100 MG PO ×2 (10:04→20:35)
[2023-08-08] MEDS: FOLVITE 1 MG PO (10:05)
[2023-08-08] MEDS: VITAMIN B-12 1000 MCG PO (10:05)
[2023-08-08] MEDS: MIRALAX PO ×2 (10:05→10:15)
--- NOTE | 2023-08-08 10:39 | PTCARENOTE ---
Patient back to room from OR post procedure. Vigil pulled in OR. Vaginal packing and darwin pad in place CDI at this time. No complaints of pain. Will continue to monitor.
--- NOTE | 2023-08-08 10:58 | W.PN.ONC ---
Today's Communication / Plan
-
3/ Hgb 8.5 s/p 4units blood
Transfuse as needed to maintain Hgb >7.5
CBC with diff daily
Monitor bleeding
Continue IV iron, B12, folate
3/ OR s/p exam under anesthesia w/ cystoscopy, proctoscopy, cervical biopsies (Dr. Knowles and Dr. Tran)
Await cervical biopsy report
Plan of care per Dermatology Teacher/Onc: MRI pelvis
Emotional support
Supportive care
Case management/social work involved
Outpatient mammogram
We will follow.
Impression
Impression
Severe symptomatic blood loss anemia s/p 4units PRBCs
Cervical mass
Vaginal bleeding x6 months
Thrombocytosis (resolved)
Iron deficiency
Hypothyroidism
Leukocytosis
Subjective/Objective
Subjective/Objective
Patient is resting in bed. She had just returned to the unit from the OR. She denies pain or shortness of breath.
Vital Signs:
Vital Signs
Temp Pulse Resp BP Pulse Ox
98 F 81 16 132/69 98
08/08/23 10:00 08/08/23 10:00 08/08/23 10:00 08/08/23 10:00 08/08/23 10:00
physical exam:
aaox3, pallor
HRR, lungs clear
vera was removed in OR
Lab Results:
Laboratory Data
WBC 14.5 10^3/uL (4.8-10.8) H 08/08/23 07:18
Hgb 8.5 g/dL (12.0-16.0) L 08/08/23 07:18
Plt Count 342 10^3/uL (130-400) 08/08/23 07:18
PT 15.2 Sec (11.4-14.6) H 08/06/23 21:33
INR 1.19 08/06/23 21:33
APTT 26.0 Sec (23.4-35.0) 08/06/23 21:33
eGFR > 60.00 08/08/23 07:18
08/06 CT c/a/p: Large mass within the lower uterine segment/cervix suspicious for neoplasm. No evidence for metastatic disease in the chest, abdomen or pelvis.
PV US: No sonographic evidence for lower extremity venous thrombosis.
Orders
Orders
Orders From Last 24 Hours
08/07/23 10:00
Cyanocobalamin [Vitamin B-12] 1,000 mcg PO DAILY
FOLic ACID [Folvite] 1 mg PO DAILY
[2023-08-08] MEDS: FERRLECIT 110 MG IV (13:14)
--- NOTE | 2023-08-08 13:28 | CM ---
CM with pt
Reports she gave info to [facility] rep yesterday - encouraged to follow up
Given info for [facility]
CM will cont to follow for d/c needs
--- NOTE | 2023-08-08 14:37 | W.PN.ONC ---
Today's Communication / Plan
-
she underwent EUA, biopsies, and cysto, procto.
she seems comfortable in bed, family present.
OR findings discussed with patient.
Impression
Impression
Severe symptomatic blood loss anemia s/p 4units PRBCs
Cervical mass due to stage III cervix ca
Vaginal bleeding x6 months
Thrombocytosis (resolved)
Iron deficiency
Hypothyroidism
Leukocytosis
Plan
Plan
08/07 Hgb 8.5 s/p 4units blood
Transfuse as needed to maintain Hgb >7.5
CBC with diff daily, serial H/H
Monitor for bleeding. Packing removed.
B12, folate supplement
IV iron ordered
Manager Biologics/Onc to see patient in 1 week in office
Plan of care will likely be induction chemo with weekly taxol/carbo followed by chemo radiation and eventually brachytherapy
Subjective/Objective
Subjective/Objective
abd soft, NT/ND
pelvic: vaginal packing removed. no bleeding present.
Vital Signs:
Vital Signs
Temp Pulse Resp BP Pulse Ox
97.9 F 82 16 132/72 97
08/08/23 12:10 08/08/23 12:10 08/08/23 12:10 08/08/23 12:10 08/08/23 12:10
Lab Results:
Laboratory Data
WBC 14.5 10^3/uL (4.8-10.8) H 08/08/23 07:18
Hgb 8.5 g/dL (12.0-16.0) L 08/08/23 07:18
Plt Count 342 10^3/uL (130-400) 08/08/23 07:18
PT 15.2 Sec (11.4-14.6) H 08/06/23 21:33
INR 1.19 08/06/23 21:33
APTT 26.0 Sec (23.4-35.0) 08/06/23 21:33
eGFR > 60.00 08/08/23 07:18
Orders
Orders
Orders From Last 24 Hours
08/07/23 19:42
Jung- Npo [Jung- Nothing by mouth] As Directed
08/08/23 07:28
OR Pathology Routine
08/08/23 19:00
CeFAZolin 2 GRAM [Ancef] 2 grams in 10 ml IV PRE PROCEDURE
--- NOTE | 2023-08-08 14:41 | W.PN.GYN ---
Today's Communication / Plan
-
She appears to have a malignancy arising from cervix leading tto bleeding and symptomatic anemia. We plan for EUA biopsies, cysto procto. patient is aware and agreeable.
--- NOTE | 2023-08-08 14:48 | W.PN.HOSP.TC ---
Today's Communication/Plan
-
MRI
Discharge planning per PUBLIC HEALTH INFORMATICIAN
Packing may need to be removed tomorrow prior to discharge
Continue antibiotics
Follow CBC in a.m.
Assessment / Plan
Assessment / Plan
56-year-old female with vaginal bleeding since January 2023. Heavy and with a lot of clots. She has not seen a PUBLIC HEALTH INFORMATICIAN for at least 20 years and not followed up with PCP for a decade or more. She felt increasingly short of breath with exertion and
fatigue.
Echo 08/07/2023-LV moderately dilated. Normal LV systolic function. EF 54%. Mildly increased LV thickness. Normal diastolic function. Normal RV size and function.
CT of the chest abdomen and pelvis-large mass in the lower uterine segment/cervix suspicion for neoplasm
No evidence of metastatic disease in the chest abdomen and pelvis.
On examination awake alert
Denies any discomfort except for mild abdominal cramps.
Cardiovascular system S1-S2 appreciated
Chest clear to auscultation
Abdomen soft and nontender
No pedal edema
# Acute on chronic blood loss anemia -ymptomatic anemia
Secondary to vaginal bleeding
Patient got 4 units of packed red blood cells
Hemoglobin stable
Iron deficiency-IV iron ordered
# Bleeding-clinically looks like cervical cancer
MRI of the pelvis ordered
PUBLIC HEALTH INFORMATICIAN oncology consulted
S/P OR today for examination under anesthesia biopsy D&C, cystoscopy and proctoscopy for staging- Cervical tumor noted.
Bleeding slowed down - has packing in place
Hemodynamically stable
CT scan without any evidence of metastatic disease
# Hypothyroidism-started Synthroid 25 mcg daily
Repeat thyroid function test in 4 to 6 weeks
# Abnormal urine analysis-cover with ceftriaxone
# Hypokalemia-replace
# Mild thrombocytosis secondary to severe anemia- better
# Leukocytosis likely secondary to treatment with IV iron
# Slightly prolonged QTc-repeat likely secondary to hypokalemia
Echo noted
# Obesity per BMI criteria
# Recreational cannabis
# DVT -okay to place subcutaneous heparin per discussion with Dr. Knowles
# Full CODE
Discussed with PUBLIC HEALTH INFORMATICIAN oncology
Discussed with several family members at bedside
Discussed with nursing
Anticipated Discharge: Within 24 hours
Subjective/Interval History
-
Date of Service: August 08, 2023
Objective Data
-
Labs:
Laboratory Results
08/08/23
07:18
WBC 14.5 H
Hgb 8.5 L
Hct 27.0 L
Plt Count 342
Sodium 137
Potassium 3.5
Chloride 106
Carbon Dioxide 23
BUN 8
Creatinine 0.5 L
Glucose 117 H
Calcium 9.0
Vital Signs:
Vital Signs
Temp Pulse Resp BP Pulse Ox
97.9 F 82 16 132/72 97
08/08/23 12:10 08/08/23 12:10 08/08/23 12:10 08/08/23 12:10 08/08/23 12:10
I&O
08/07/23 08/08/23 08/09/23
06:59 06:59 06:59
Intake Total 1250 / 1250 1440 / 1440 100 / 100
Output Total 825 / 825 450 / 450
Balance 425 / 425 990 / 990 100 / 100
[2023-08-08] MEDS: ROCEPHIN 1000 MG IV (16:48)
[2023-08-08] MEDS: STERILE WATER FOR INJECTION 10 ML IV (16:49)
[2023-08-08] MEDS: SENOKOT 17.1999999999999993 MG PO (20:35)
[2023-08-09 03:55] VITALS: BP 151/78
[2023-08-09] MEDS: SYNTHROID 25 MCG PO (05:43)
[2023-08-09 06:00] VITALS: BMI 35.6
[2023-08-09] MEDS: MORPHINE SULFATE 2 MG IV ×4 (07:05→23:50)
[2023-08-09 08:00] VITALS: BP 146/75
[2023-08-09 08:17] LABS: Hematocrit 26.5 % (37.0-47.0); Hemoglobin 8.1 g/dL (12.0-16.0); Mean Corp Hgb Conc. 30.6 g/dL (33.0-37.0); Mean Corpuscular Volume 81.8 fL (81.0-99.0); Mean Platelet Volume 9.9 fL (7.4-10.4); Platelet Count 341 10^3/uL (130-400); Red Blood Cell Count 3.24 10^6/uL (4.20-5.40); Red Cell Dist. Width 21.2 % (11.5-14.5); White Blood Cell Count 21.1 10^3/uL (4.8-10.8)
[2023-08-09] MEDS: HEPARIN 5000 UNITS SC ×2 (09:08→19:46)
[2023-08-09] MEDS: FOLVITE 1 MG PO (09:09)
[2023-08-09] MEDS: VITAMIN B-12 1000 MCG PO (09:11)
[2023-08-09] MEDS: COLACE 100 MG PO ×2 (09:11→19:47)
[2023-08-09] MEDS: MIRALAX 17 GRAMS PO (09:12)
[2023-08-09 11:44] VITALS: BP 140/65
--- NOTE | 2023-08-09 13:51 | W.PN.HOSP.TC ---
Addendum entered and electronically signed by Diana Gibson MD 08/09/23 14:05:
urine culture noted- Will give a dos of Fosfomycin . She already had 2 doses of Ceftriaxone. This will cover 3 more days to treat uncomplicated UTI.
Original Note:
Today's Communication/Plan
-
Await microbiology to finalize urine cultures
Possible discharge today after seen by oncology
Suspect white count is secondary to anemia iron deficiency and treatment for that
Assessment / Plan
Assessment / Plan
56-year-old female with vaginal bleeding since January 2023. Heavy and with a lot of clots. She has not seen a MUSSEL FARMER for at least 20 years and not followed up with PCP for a decade or more. She felt increasingly short of breath with exertion and
fatigue.
Echo 08/07/2023-LV moderately dilated. Normal LV systolic function. EF 54%. Mildly increased LV thickness. Normal diastolic function. Normal RV size and function.
CT of the chest abdomen and pelvis-large mass in the lower uterine segment/cervix suspicion for neoplasm
No evidence of metastatic disease in the chest abdomen and pelvis.
MRI-large heterogeneous cervical mass 5.4 into 5.6 and two 4 cm
With central necrosis. Predominantly due to the endocervical canal. Has extension into the lower uterine segment. Small enhancing soft tissue extension along the right lateral and left lateral margin of upper cervix suggesting tumor extension to
the surrounding soft tissue with moderate edema. Pelvic sidewall lymph node 1.7 2.6 cm
On examination awake alert
Denies any discomfort except for mild abdominal cramps.
Cardiovascular system S1-S2 appreciated
Chest clear to auscultation
Abdomen soft and nontender
No pedal edema
# Acute on chronic blood loss anemia -symptomatic anemia
Secondary to vaginal bleeding
Patient got 4 units of packed red blood cells
Hemoglobin stable
Iron deficiency-IV iron ordered
# Bleeding-clinically looks like cervical cancer with local spread
Examination under anesthesia biopsy D&C, cystoscopy and proctoscopy for staging- Cervical tumor noted.
Bleeding slowed down -packing removed by MUSSEL FARMER yesterday. No more l bleeding
Hemodynamically stable
CT scan without any evidence of metastatic disease
# Hypothyroidism-started Synthroid 25 mcg daily
Repeat thyroid function test in 4 to 6 weeks
# Abnormal urine analysis-cover with ceftriaxone called microbiology lab
Will finalize urine culture results soon.
# Hypokalemia-replaced
# Mild thrombocytosis secondary to severe anemia- better
# Leukocytosis likely secondary to treatment with IV iron and treatment of anemia with blood
# Slightly prolonged QTc-repeat likely secondary to hypokalemia
Echo noted
# Obesity per BMI criteria
# Recreational cannabis
# DVT -okay to place subcutaneous heparin per discussion with Dr. Knowles
# Full CODE
Discussed with nursing
Anticipated Discharge: Today
Subjective/Interval History
-
Date of Service: August 09, 2023
Objective Data
-
Labs:
Laboratory Results
08/09/23
07:47
WBC 21.1 H
Hgb 8.1 L
Hct 26.5 L
Plt Count 341
Vital Signs:
Vital Signs
Temp Pulse Resp BP Pulse Ox
98.1 F 58 16 140/65 98
08/09/23 11:44 08/09/23 11:44 08/09/23 11:44 08/09/23 11:44 08/09/23 11:44
I&O
08/08/23 08/09/23 08/10/23
06:59 06:59 06:59
Intake Total 1440 / 1440 580 / 580
Output Total 450 / 450 150 / 150
Balance 990 / 990 430 / 430
[2023-08-09] MEDS: FERRLECIT 110 MG IV (14:04)
--- NOTE | 2023-08-09 14:10 | W.[place]-PDMP ---
[place]-PD[place]
-
Checked the [place]- Prescription Drug Monitoring Program website, no red flags identified; safe to proceed with prescription.
[2023-08-09] MEDS: MONUROL 3 GM PO (14:24)
[2023-08-09] MEDS: MILK OF MAGNESIA 30 ML PO (14:24)
[2023-08-09 15:35] VITALS: BP 138/78
[2023-08-09] MEDS: SENOKOT 17.1999999999999993 MG PO (19:47)
[2023-08-09 19:51] VITALS: BP 135/69
--- NOTE | 2023-08-09 20:15 | W.PN.ONC2 ---
Today's Communication / Plan
-
Afebrile.
Suspect elevated WBC might be from cancer/necrotic mass.
Await microbiology to finalize urine cultures.
Suggest keeping pt in hospital overnight with rising WBC.
Impression
Impression
Severe symptomatic blood loss anemia s/p 4units PRBCs
Cervical mass due to stage III cervix ca
Vaginal bleeding x6 months
Thrombocytosis (resolved)
Iron deficiency
Hypothyroidism
Leukocytosis
Plan
Plan
3 Hgb 8.5 s/p 4units blood
Transfuse as needed to maintain Hgb >7.5
CBC with diff daily, serial H/H
Monitor for bleeding. Packing removed.
B12, folate supplement
IV iron ordered
Journeyman Powerhouse Operator/Onc to see patient in 1 week in office
Plan of care will likely be induction chemo with weekly taxol/carbo followed by chemo radiation and eventually brachytherapy
Subjective/Objective
Chief Complaint
New cx cervical cancer
Subjective
Pt with rising WBC count. Undergoing IV iron currently. IV access has been a problem.
Vital Signs:
Vital Signs
Temp Pulse Resp BP Pulse Ox
98.4 F 76 20 135/69 97
08/09/23 19:51 08/09/23 19:51 08/09/23 19:51 08/09/23 19:51 08/09/23 19:51
Lab Results:
Laboratory Data
WBC 21.1 10^3/uL (4.8-10.8) H 08/09/23 07:47
Hgb 8.1 g/dL (12.0-16.0) L 08/09/23 07:47
Plt Count 341 10^3/uL (130-400) 08/09/23 07:47
PT 15.2 Sec (11.4-14.6) H 02/28/24 21:33
INR 1.19 08/06/23 21:33
APTT 26.0 Sec (23.4-35.0) 08/06/23 21:33
eGFR > 60.00 08/08/23 07:18
Physical Exam
Awake, alert, non-toxic appearing.
[2023-08-09 23:50] VITALS: BP 137/74
[2023-08-10 03:39] VITALS: BP 136/77
[2023-08-10] MEDS: MORPHINE SULFATE 2 MG IV ×3 (06:04→14:21)
[2023-08-10] MEDS: SYNTHROID 25 MCG PO (06:06)
[2023-08-10 07:38] LABS: Hematocrit 28.4 % (37.0-47.0); Hemoglobin 8.6 g/dL (12.0-16.0); Mean Corp Hgb Conc. 30.3 g/dL (33.0-37.0); Mean Corpuscular Hgb 25.3 pg (27.0-31.0); Mean Corpuscular Volume 83.5 fL (81.0-99.0); Mean Platelet Volume 10.1 fL (7.4-10.4); Platelet Count 321 10^3/uL (130-400); Red Cell Dist. Width 23.7 % (11.5-14.5); White Blood Cell Count 18.1 10^3/uL (4.8-10.8)
[2023-08-10 07:43] VITALS: BP 161/86
[2023-08-10] MEDS: HEPARIN 5000 UNITS SC (08:25)
[2023-08-10] MEDS: MIRALAX 17 GRAMS PO (08:25)
[2023-08-10] MEDS: FOLVITE 1 MG PO (08:25)
[2023-08-10] MEDS: VITAMIN B-12 1000 MCG PO (08:25)
[2023-08-10] MEDS: COLACE 100 MG PO (08:25)
[2023-08-10 08:28] LABS: Blood Urea Nitrogen 11 mg/dl (7-17); Calcium 9.1 mg/dl (8.4-10.2); Carbon Dioxide 24 mmol/L (22-30); Chloride 104 mmol/L (98-107); Estimated Creatinine Clearance 118 ml/min; Glucose 85 mg/dl (70-99); Potassium 3.9 mmol/L (3.5-5.1); Sodium 137 mmol/L (135-145); eGFR > 60.00
--- NOTE | 2023-08-10 10:44 | CM ---
CM met with pt at bedside.
Pt plans to follow up at [facility]. No update on [facility] denise received, [facility] and encouraged pt to follow up.
Pt reports having support at home, lives with spouse who can assist. Also reports ambulating well in the room.
CM will continue to follow and assist as able.
[2023-08-10 11:52] VITALS: BP 140/79
[2023-08-10] MEDS: FERRLECIT 110 MG IV (14:09)
[2023-08-10 15:01] VITALS: BP 155/74
--- NOTE | 2023-08-10 15:59 | W.PN.ONC2 ---
Today's Communication / Plan
-
WBC improved, afebrile.
Could transition to Macobid if further antibiotic needed.
Okay for D/C from Med Onc standpoint.
Has [facility] On[facility] follow up scheduled.
Impression
Impression
Severe symptomatic blood loss anemia s/p 4units PRBCs
Cervical mass due to stage III cervix ca
Vaginal bleeding x6 months
Thrombocytosis (resolved)
Iron deficiency
Hypothyroidism
Leukocytosis
UTI, E.coli, sensitive to macrobid, resistant to fluoroquinalone and Bactrim
Plan
Plan
3 Hgb 8.5 s/p 4units blood
Transfuse as needed to maintain Hgb >7.5
CBC with diff daily, serial H/H
Monitor for bleeding. Packing removed.
B12, folate supplement
IV iron ordered
[facility]/Onc to see patient in 1 week in office
Plan of care will likely be induction chemo with weekly taxol/carbo followed by chemo radiation and eventually brachytherapy
Subjective/Objective
Chief Complaint
cervical cancer, cytopenias, leukocytosis
Subjective
Denies new complaint, denies uncontrolled pain.
Vital Signs:
Vital Signs
Temp Pulse Resp BP Pulse Ox
98.1 F 75 16 140/79 98
08/10/23 11:52 08/10/23 11:52 08/10/23 11:52 08/10/23 11:52 08/10/23 11:52
Lab Results:
Laboratory Data
WBC 18.1 10^3/uL (4.8-10.8) H 08/10/23 07:09
Hgb 8.6 g/dL (12.0-16.0) L 08/10/23 07:09
Plt Count 321 10^3/uL (130-400) 08/10/23 07:09
PT 15.2 Sec (11.4-14.6) H 08/06/23 21:33
INR 1.19 08/06/23 21:33
APTT 26.0 Sec (23.4-35.0) 08/06/23 21:33
eGFR > 60.00 08/10/23 07:09
Physical Exam
Awake, alert, non-toxic
--- NOTE | 2023-08-10 16:23 | W.PN.HOSP.TC ---
Today's Communication/Plan
-
Discharge
Assessment / Plan
Assessment / Plan
56-year-old female with vaginal bleeding since January 2023. Heavy and with a lot of clots. She has not seen a AUTHOR for at least 20 years and not followed up with PCP for a decade or more. She felt increasingly short of breath with exertion and
fatigue.
Echo 08/07/2023-LV moderately dilated. Normal LV systolic function. EF 54%. Mildly increased LV thickness. Normal diastolic function. Normal RV size and function.
CT of the chest abdomen and pelvis-large mass in the lower uterine segment/cervix suspicion for neoplasm
No evidence of metastatic disease in the chest abdomen and pelvis.
MRI-large heterogeneous cervical mass 5.4 into 5.6 and two 4 cm
With central necrosis. Predominantly due to the endocervical canal. Has extension into the lower uterine segment. Small enhancing soft tissue extension along the right lateral and left lateral margin of upper cervix suggesting tumor extension to
the surrounding soft tissue with moderate edema. Pelvic sidewall lymph node 1.7 2.6 cm
On examination awake alert
Denies any discomfort except for mild abdominal cramps.
Cardiovascular system S1-S2 appreciated
Chest clear to auscultation
Abdomen soft and nontender
No pedal edema
# Acute on chronic blood loss anemia -symptomatic anemia
Secondary to vaginal bleeding
Patient got 4 units of packed red blood cells
Hemoglobin stable
Iron deficiency-IV iron ordered
# Bleeding-clinically looks like cervical cancer with local spread
Examination under anesthesia biopsy D&C, cystoscopy and proctoscopy for staging- Cervical tumor noted.
Bleeding slowed down -packing removed by AUTHOR . No more l bleeding
Hemodynamically stable
CT scan without any evidence of distant metastatic disease
# Hypothyroidism-started Synthroid 25 mcg daily
Repeat thyroid function test in 4 to 6 weeks
# Abnormal urine analysis-E coli
Patient received ceftriaxone and also 1 dose of Monurol for uncomplicated UTI
# Hypokalemia-replaced
# Mild thrombocytosis secondary to severe anemia- better
# Leukocytosis likely secondary to recent biopsy
Also UTI. Better
Can be followed as outpatient
AUTHOR oncology to follow-up
# Slightly prolonged QTc-repeat likely secondary to hypokalemia
Echo noted
# Obesity per BMI criteria
# Recreational cannabis
# DVT -okay to place subcutaneous heparin per discussion with Dr. Knowles
# Full CODE
Hematology oncology okay for discharge
Discussed with nursing
Anticipated Discharge: Today
Subjective/Interval History
-
Date of Service: August 10, 2023
Objective Data
-
Labs:
Laboratory Results
08/10/23
07:09
WBC 18.1 H
Hgb 8.6 L
Hct 28.4 L
Plt Count 321
Sodium 137
Potassium 3.9
Chloride 104
Carbon Dioxide 24
BUN 11
Creatinine 0.5 L
Glucose 85
Calcium 9.1
Vital Signs:
Vital Signs
Temp Pulse Resp BP Pulse Ox
98.2 F 76 18 155/74 97
08/10/23 15:01 08/10/23 15:01 08/10/23 15:01 08/10/23 15:01 08/10/23 15:01
I&O
08/09/23 08/10/23 08/11/23
06:59 06:59 06:59
Intake Total 580 / 580 420 / 420
Output Total 150 / 150
Balance 430 / 430 420 / 420
--- NOTE | 2023-08-10 16:32 | W.DS.TRANS ---
Addendum entered and electronically signed by Diana Gibson MD 08/10/23 17:35:
Dictation- [id number]
Original Note:
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
-
Discharge Instructions:
Discharge Diagnosis/Procedures Cervical mass likely cancer, anemia, low
potassium, UTI, hypothyroidism
Diet As tolerated
Activity As tolerated
Driving Restrictions As prior to admission
Blood Work cbc 1 week. Thyroid function test 6 weeks
Instructions:
Stand-Alone Forms:
Changes to Home Medications: Yes
Discharge Medications:
DC Medications w/original date entered in [email or web address]
ibuprofen 200 mg tablet (Advil) 600 mg PO TIDPRN PRN mild pain 08/06/23
cyanocobalamin (vitamin B-12) 1,000 mcg tablet 1,000 mcg PO DAILY ANEMIA #0 tabs 08/09/23
docusate sodium 100 mg capsule 100 mg PO BID Constipation #0 caps 08/09/23
ferrous sulfate 325 mg (65 mg iron) tablet 325 mg PO DAILY anemia #30 tabs 08/09/23
folic acid 1 mg tablet 1 mg PO DAILY anemia #30 tabs 08/09/23
levothyroxine 25 mcg tablet 25 mcg PO DAILY AT 0700 Thyroid #30 tabs 08/09/23
polyethylene glycol 3350 17 gram oral powder packet (HealthyLax) 17 g PO DAILY Constipation #0 ea 08/09/23
tramadol 50 mg tablet 50 mg PO Q6HPRN PRN moderate pain #30 tabs 08/09/23
Home Medication Changes
new
cyanocobalamin (vitamin B-12) 1,000 mcg tablet 1,000 mcg PO DAILY ANEMIA #0 tabs 08/09/23
docusate sodium 100 mg capsule 100 mg PO BID Constipation #0 caps 08/09/23
ferrous sulfate 325 mg (65 mg iron) tablet 325 mg PO DAILY anemia #30 tabs 08/09/23
folic acid 1 mg tablet 1 mg PO DAILY anemia #30 tabs 08/09/23
levothyroxine 25 mcg tablet 25 mcg PO DAILY AT 0700 Thyroid #30 tabs 08/09/23
polyethylene glycol 3350 17 gram oral powder packet (HealthyLax) 17 g PO DAILY Constipation #0 ea 08/09/23
tramadol 50 mg tablet 50 mg PO Q6HPRN PRN moderate pain #30 tabs 08/09/23
Pending Results: No
== END 2023-08-10 17:59 | disposition home or self-care (01) | DRG 744 ==
LOC: 4 EAST ACU 18:09
PROVIDERS: Emergency Medicine; Physician Assistant Medical; ADMITTING PHYSICIAN Hospitalist; CONSULT PHYSICIAN Internal Medicine Cardiovascular Disease; CONSULT PHYSICIAN Internal Medicine Hematology & Oncology; CONSULT PHYSICIAN Obstetrics & Gynecology; CONSULT PHYSICIAN Obstetrics & Gynecology Gynecologic Oncology; EMERGENCY PHYSICIAN Emergency Medicine
PROC: 30233N1 Transfusion of Nonautologous Red Blood Cells into Peripheral Vein, Percutaneous Approach (ICD-10-PCS; 2023-08-06)
PROC: 0UBC7ZX Excision of Cervix, Via Natural or Artificial Opening, Diagnostic (ICD-10-PCS; 2023-08-08)
PROC: 0DJD8ZZ Inspection of Lower Intestinal Tract, Via Natural or Artificial Opening Endoscopic (ICD-10-PCS; 2023-08-08)
PROC: 0TJB8ZZ Inspection of Bladder, Via Natural or Artificial Opening Endoscopic (ICD-10-PCS; 2023-08-08)
DX: C53.0 Malignant neoplasm of endocervix (principal); D62 Acute posthemorrhagic anemia; N39.0 Urinary tract infection, site not specified; E87.6 Hypokalemia; B96.20 Unspecified Escherichia coli [E. coli] as the cause of diseases classified elsewhere; E03.9 Hypothyroidism, unspecified; E16.2 Hypoglycemia, unspecified; I49.3 Ventricular premature depolarization; M79.7 Fibromyalgia; Z87.891 Personal history of nicotine dependence
CPT/HCPCS: 88305; 36430; 71260; 72197; 74177; 76830; 76856; 80048; 80053; 81003; 81015; 82150; 82607; 82728; 82746; 82962; 83540; 83550; 83690; 83735; 84439; 84443; 84703; 85014; 85018; 85025; 85027; 85610; 85730; 86704; 86705; 86706; 86708; 86709; 86803; 86850; 86900; 86901; 86920; 87040; 87077; 87086; 87186; 87340; 93005; 93306; 93970; 99291; A9575; G0123; J2916; P9016; Q9967

== ENCOUNTER → 2023-08-19 08:37 | Outpatient (REF) | payer OTHER, SELFPAY ==
[2023-08-19] VITALS (8 sets, daily range): BP systolic 79–143; BP diastolic 64–99
[2023-08-19] MEDS: ANCEF 10 IV (09:48)
== END ==
LOC: RADI 08:37
PROVIDERS: ATTENDING PHYSICIAN Internal Medicine Hematology & Oncology
DX: C20 Malignant neoplasm of rectum (principal)
CPT/HCPCS: 36561; 76937; 77001; 80053; 85025; 99152; 99153; C1788

== ENCOUNTER → 2023-08-19 12:17 | Outpatient (REF) | payer OTHER, SELFPAY ==
[2023-08-19 12:31] LABS: % Basophils 0.9 % (0-2); % Eosinophils 6.9 % (0-6); % Immature Granulocytes 0.1 % (0-0.5); % Lymphocytes 23.6 % (20.5-51.1); % Monocytes 8.7 % (1.7-9.3); % Neutrophils 59.8 % (42.2-75.2); Absolute Basophils 0.1 10^3/uL (0-0.2); Absolute Eosinophils 0.5 10^3/uL (0-0.7); Absolute Lymphocytes 1.8 10^3/uL (1.2-3.4); Absolute Monocytes 0.7 10^3/uL (0.1-0.6); Absolute Neutrophils 4.6 10^3/uL (1.4-6.5); Hematocrit 33.1 % (37.0-47.0); Hemoglobin 10.2 g/dL (12.0-16.0); Mean Corp Hgb Conc. 30.8 g/dL (33.0-37.0); Mean Corpuscular Hgb 27.5 pg (27.0-31.0); Mean Corpuscular Volume 89.2 fL (81.0-99.0); Mean Platelet Volume 9.5 fL (7.4-10.4); Platelet Count 362 10^3/uL (130-400); Red Blood Cell Count 3.71 10^6/uL (4.20-5.40); Red Cell Dist. Width 23.4 % (11.5-14.5); White Blood Cell Count 7.7 10^3/uL (4.8-10.8)
[2023-08-19 13:03] LABS: ALT (SGPT) 13 U/L (0-35); AST (SGOT) 26 U/L (14-36); Albumin 4.2 g/dl (3.5-5.0); Alkaline Phosphatase 137 U/L (38-126); Blood Urea Nitrogen 8 mg/dl (7-17); Calcium 9.7 mg/dl (8.4-10.2); Carbon Dioxide 26 mmol/L (22-30); Chloride 105 mmol/L (98-107); Glucose 101 mg/dl (70-99); Potassium 4.1 mmol/L (3.5-5.1); Sodium 137 mmol/L (135-145); Total Bilirubin 0.6 mg/dl (0.2-1.3); Total Protein 6.9 g/dl (6.3-8.2); eGFR > 60.00
== END ==
LOC: OIDL 12:17
PROVIDERS: ATTENDING PHYSICIAN Internal Medicine Hematology & Oncology
DX: C53.0 Malignant neoplasm of endocervix (principal); D50.0 Iron deficiency anemia secondary to blood loss (chronic)
CPT/HCPCS: 80053; 85025

== ENCOUNTER 2023-09-04 08:04 | Outpatient (RCR) | payer OTHER, SELFPAY ==
[2023-08-21] VITALS (16 sets, daily range): BP systolic 98–156; BP diastolic 8–84; BMI 33.8
[2023-08-21 09:36] LABS: % Basophils 0.9 % (0-2); % Eosinophils 6.6 % (0-6); % Immature Granulocytes 0.1 % (0-0.5); % Lymphocytes 26.8 % (20.5-51.1); % Monocytes 7.8 % (1.7-9.3); % Neutrophils 57.8 % (42.2-75.2); Absolute Basophils 0.1 10^3/uL (0-0.2); Absolute Eosinophils 0.5 10^3/uL (0-0.7); Absolute Lymphocytes 2.1 10^3/uL (1.2-3.4); Absolute Monocytes 0.6 10^3/uL (0.1-0.6); Absolute Neutrophils 4.5 10^3/uL (1.4-6.5); Hematocrit 33.2 % (37.0-47.0); Hemoglobin 10.4 g/dL (12.0-16.0); Mean Corp Hgb Conc. 31.3 g/dL (33.0-37.0); Mean Corpuscular Hgb 27.7 pg (27.0-31.0); Mean Corpuscular Volume 88.5 fL (81.0-99.0); Platelet Count 382 10^3/uL (130-400); Red Blood Cell Count 3.75 10^6/uL (4.20-5.40); Red Cell Dist. Width 23.1 % (11.5-14.5); White Blood Cell Count 7.8 10^3/uL (4.8-10.8)
[2023-08-21 10:14] LABS: ALT (SGPT) 12 U/L (0-35); AST (SGOT) 24 U/L (14-36); Albumin 4.4 g/dl (3.5-5.0); Alkaline Phosphatase 140 U/L (38-126); Blood Urea Nitrogen 7 mg/dl (7-17); Calcium 9.7 mg/dl (8.4-10.2); Carbon Dioxide 26 mmol/L (22-30); Chloride 103 mmol/L (98-107); Glucose 110 mg/dl (70-99); Magnesium 2.1 mg/dl (1.6-2.3); Sodium 138 mmol/L (135-145); Total Bilirubin 0.7 mg/dl (0.2-1.3); Total Protein 7.1 g/dl (6.3-8.2); eGFR > 60.00
[2023-08-21] MEDS: PEPCID 52 MG IV (11:32)
[2023-08-21] MEDS: ALOXI 5 MG IV (11:33)
[2023-08-21] MEDS: DECADRON 52 MG IV (11:53)
[2023-08-21] MEDS: BENADRYL 50.5 MG IV (12:27)
[2023-08-21] MEDS: TAXOL/PACLITAXEL 276.666699999999992 MG IV (12:54)
[2023-08-21] MEDS: SOLU-MEDROL PF 50.7999999999999972 MG IV (13:23)
--- NOTE | 2023-08-21 13:40 | PTCARENOTE ---
1303: Pt called and c/o flushing in face and 'tingly' in her throat. Pt's face and upper part of chest redenned. Taxol immediately stopped, and saline opened and running. Flushing of face and chest stopped as well as her throat was not 'tingly'
anymore.
VS: hr: 82, rr: 18, bp: 156/76.
TT Seamus Franksist [employer] SALES AGENT of above and orders entered for Solumedrol 50 gm iv now and then resume Taxol.
1323: Solumedrol given,
1335: Taxol resumed.
1345: Pt offers no complaints, vs cycling 15 minutes. will closely monitor.
[2023-08-21] MEDS: PARAPLATIN 275.100000000000023 MG IV (14:54)
--- NOTE | 2023-08-21 15:22 | PTCARENOTE ---
Pt tolerated remainder of Taxol without any incidence. VSS, Carboplatin infusing at present no complaints at present, will follow.
[2023-08-28] VITALS (7 sets, daily range): BP systolic 119–133; BP diastolic 69–83; BMI 34.4
[2023-08-28 08:34] LABS: % Basophils 0.9 % (0-2); % Eosinophils 8.2 % (0-6); % Immature Granulocytes 0.3 % (0-0.5); % Lymphocytes 27.4 % (20.5-51.1); % Monocytes 4.6 % (1.7-9.3); % Neutrophils 58.6 % (42.2-75.2); Absolute Basophils 0.1 10^3/uL (0-0.2); Absolute Eosinophils 0.6 10^3/uL (0-0.7); Absolute Lymphocytes 1.9 10^3/uL (1.2-3.4); Absolute Monocytes 0.3 10^3/uL (0.1-0.6); Absolute Neutrophils 4.1 10^3/uL (1.4-6.5); Hematocrit 30.5 % (37.0-47.0); Hemoglobin 9.7 g/dL (12.0-16.0); Mean Corp Hgb Conc. 31.8 g/dL (33.0-37.0); Mean Corpuscular Hgb 28.6 pg (27.0-31.0); Mean Platelet Volume 9.7 fL (7.4-10.4); Platelet Count 262 10^3/uL (130-400); Red Blood Cell Count 3.39 10^6/uL (4.20-5.40); Red Cell Dist. Width 21.7 % (11.5-14.5); White Blood Cell Count 6.9 10^3/uL (4.8-10.8)
[2023-08-28 09:04] LABS: ALT (SGPT) 11 U/L (0-35); AST (SGOT) 24 U/L (14-36); Albumin 4.1 g/dl (3.5-5.0); Alkaline Phosphatase 118 U/L (38-126); Blood Urea Nitrogen 7 mg/dl (7-17); Calcium 9.3 mg/dl (8.4-10.2); Carbon Dioxide 27 mmol/L (22-30); Chloride 104 mmol/L (98-107); Estimated Creatinine Clearance 116 ml/min; Glucose 116 mg/dl (70-99); Potassium 3.9 mmol/L (3.5-5.1); Sodium 136 mmol/L (135-145); Total Bilirubin 0.6 mg/dl (0.2-1.3); Total Protein 6.5 g/dl (6.3-8.2); eGFR > 60.00
[2023-08-28] MEDS: ALOXI 5 MG IV (10:25)
[2023-08-28] MEDS: DECADRON 52 MG IV (10:26)
[2023-08-28] MEDS: PEPCID 52 MG IV (10:56)
[2023-08-28] MEDS: BENADRYL 50.5 MG IV (11:24)
[2023-08-28] MEDS: TAXOL/PACLITAXEL 276.666699999999992 MG IV (12:03)
[2023-08-28] MEDS: PARAPLATIN 275.100000000000023 MG IV (13:22)
[2023-09-04] VITALS (14 sets, daily range): BP systolic 127–181; BP diastolic 67–120; BMI 34.4
[2023-09-04 08:24] LABS: % Basophils 1.1 % (0-2); % Eosinophils 3.9 % (0-6); % Immature Granulocytes 0.5 % (0-0.5); % Lymphocytes 37.9 % (20.5-51.1); % Monocytes 4.5 % (1.7-9.3); % Neutrophils 52.1 % (42.2-75.2); Absolute Basophils 0.1 10^3/uL (0-0.2); Absolute Eosinophils 0.2 10^3/uL (0-0.7); Absolute Lymphocytes 2.3 10^3/uL (1.2-3.4); Absolute Monocytes 0.3 10^3/uL (0.1-0.6); Absolute Neutrophils 3.2 10^3/uL (1.4-6.5); Hematocrit 32.4 % (37.0-47.0); Hemoglobin 10.6 g/dL (12.0-16.0); Mean Corp Hgb Conc. 32.7 g/dL (33.0-37.0); Mean Corpuscular Hgb 29.5 pg (27.0-31.0); Mean Corpuscular Volume 90.3 fL (81.0-99.0); Mean Platelet Volume 10.4 fL (7.4-10.4); Platelet Count 286 10^3/uL (130-400); Red Blood Cell Count 3.59 10^6/uL (4.20-5.40); Red Cell Dist. Width 20.4 % (11.5-14.5); White Blood Cell Count 6.2 10^3/uL (4.8-10.8)
[2023-09-04 08:48] LABS: Blood Urea Nitrogen 8 mg/dl (7-17); Calcium 9.7 mg/dl (8.4-10.2); Carbon Dioxide 22 mmol/L (22-30); Chloride 105 mmol/L (98-107); Estimated Creatinine Clearance 116 ml/min; Glucose 106 mg/dl (70-99); Potassium 4.2 mmol/L (3.5-5.1); Sodium 135 mmol/L (135-145); eGFR > 60.00
[2023-09-04] MEDS: ALOXI 5 MG IV (10:19)
[2023-09-04] MEDS: PEPCID 52 MG IV ×2 (10:19→12:21)
[2023-09-04] MEDS: DECADRON 52 MG IV (10:45)
[2023-09-04] MEDS: BENADRYL 50.5 MG IV (11:10)
[2023-09-04] MEDS: TAXOL/PACLITAXEL 276.666699999999992 MG IV (11:37)
[2023-09-04] MEDS: SOLU-MEDROL PF 50.7999999999999972 MG IV (11:56)
[2023-09-04] MEDS: BENADRYL 25 MG IV (12:16)
[2023-09-04] MEDS: PARAPLATIN 275.100000000000023 MG IV (14:03)
--- NOTE | 2023-09-04 15:56 | PTCARENOTE ---
Client presented today for week 3 carboplatin/ taxol treatment. Premeds given as ordered. Taxol initiated at 1135. Developed hypersensitivity reaction at 1145 after 23.1 mls of taxol was infused. client's face bright red with 'odd' feeling in
throat.Taxol stopped immediately and normal saline hung. Vs 88-18-181/120 with pulse ox 100% on room air. Rapid response called. Britton notified. Client started to feel better within 5 minutes of stopping Taxol. vs 76 16 139/85 with pulse ox of
100% on room air within 10 minutes.Additional premeds of Benadryl 25mg IV push, Medrol 50 mg IV and Pepcid 20mg IV were given. Taxol resumed at 1245 at reduced rate for 20 minutes. Increased to prescribed rate after 20 minutes and remainder of dose
was completed with no further reaction noted
== END 2023-09-05 10:38 | disposition home or self-care (01) ==
LOC: OID 08:04
PROVIDERS: ATTENDING PHYSICIAN Internal Medicine Hematology & Oncology
DX: Z51.11 Encounter for antineoplastic chemotherapy (principal); C53.0 Malignant neoplasm of endocervix; D50.0 Iron deficiency anemia secondary to blood loss (chronic)
CPT/HCPCS: 80048; 80053; 83735; 85025; 96367; 96375; 96413; 96417; J2469; J9045; J9267

== ENCOUNTER → 2023-09-10 07:45 | Outpatient (REF) | payer OTHER, SELFPAY | LOC: PET 07:45 | PROVIDERS: ATTENDING PHYSICIAN Obstetrics & Gynecology Gynecologic Oncology | DX: C53.0 Malignant neoplasm of endocervix (principal) | CPT/HCPCS: 78815; A9552 ==

== ENCOUNTER 2023-10-02 08:35 | Outpatient (RCR) | payer OTHER, SELFPAY ==
[2023-09-11] VITALS (7 sets, daily range): BP systolic 121–155; BP diastolic 71–84; BMI 34.6
[2023-09-11 08:38] LABS: % Basophils 1.6 % (0-2); % Eosinophils 1.6 % (0-6); % Immature Granulocytes 0.4 % (0-0.5); % Lymphocytes 34.9 % (20.5-51.1); % Monocytes 6.5 % (1.7-9.3); Absolute Basophils 0.1 10^3/uL (0-0.2); Absolute Eosinophils 0.1 10^3/uL (0-0.7); Absolute Lymphocytes 1.8 10^3/uL (1.2-3.4); Absolute Monocytes 0.3 10^3/uL (0.1-0.6); Absolute Neutrophils 2.8 10^3/uL (1.4-6.5); Hematocrit 30.3 % (37.0-47.0); Hemoglobin 9.6 g/dL (12.0-16.0); Mean Corp Hgb Conc. 31.7 g/dL (33.0-37.0); Mean Corpuscular Hgb 29.1 pg (27.0-31.0); Mean Corpuscular Volume 91.8 fL (81.0-99.0); Mean Platelet Volume 9.8 fL (7.4-10.4); Platelet Count 203 10^3/uL (130-400); Red Cell Dist. Width 19.5 % (11.5-14.5); White Blood Cell Count 5.1 10^3/uL (4.8-10.8)
[2023-09-11 10:01] LABS: ALT (SGPT) < 10 U/L (0-35); AST (SGOT) 17 U/L (14-36); Albumin 4.1 g/dl (3.5-5.0); Alkaline Phosphatase 111 U/L (38-126); Blood Urea Nitrogen 10 mg/dl (7-17); Calcium 9.2 mg/dl (8.4-10.2); Carbon Dioxide 24 mmol/L (22-30); Chloride 106 mmol/L (98-107); Estimated Creatinine Clearance 116 ml/min; Glucose 99 mg/dl (70-99); Magnesium 1.7 mg/dl (1.6-2.3); Sodium 134 mmol/L (135-145); Total Bilirubin 0.4 mg/dl (0.2-1.3); Total Protein 6.4 g/dl (6.3-8.2); eGFR > 60.00
[2023-09-11] MEDS: ALOXI 5 MG IV (11:34)
[2023-09-11] MEDS: PEPCID 52 MG IV (11:34)
[2023-09-11] MEDS: DECADRON 53 MG IV (12:05)
[2023-09-11] MEDS: BENADRYL 51 MG IV (12:33)
[2023-09-11] MEDS: TAXOL/PACLITAXEL 276.666699999999992 MG IV (13:03)
[2023-09-11] MEDS: SOLU-MEDROL PF 50 MG IV (13:22)
[2023-09-11] MEDS: PEPCID 20 MG IV (13:27)
[2023-09-11] MEDS: NSS (PRESERVATIVE FREE) 8 ML IV (13:32)
[2023-09-11] MEDS: PARAPLATIN 275.100000000000023 MG IV (13:52)
--- NOTE | 2023-09-11 16:36 | PTCARENOTE ---
Client presented for week 4 Taxol/Carboplatin. Additional premeds of Benadryl 50mg IV and Dexamethasone 30mg IV given due to hypersensitivity reaction on 09/04/23. Taxol hung at 1305. Client became flushed and had 'tickle' in throat and 'odd'
feeling 8 minutes into Taxol infusion. Taxol stopped immediately and Normal saline ran wide open. HR 84 and B/P 155/84 at that time. Symptoms began to resolve within a few minutes. Solumedrol 50mg IV push administered along with 20mg Pepcid 20mg IV
push. HR 79 and BP 132/71 at 1330. Mary Samayoa notified of reaction,what actions were taken and requested guidance on wether to resume treatment or not. Taxol discontinued as instructed and Carboplatin hung by 1400. Client tolerated remainder of
treatment with no further issues. Again, Mary Samayoa notified of outcome.
[2023-09-18] VITALS (11 sets, daily range): BP systolic 137–159; BP diastolic 57–82; BMI 34.8
[2023-09-18 08:25] LABS: % Basophils 0.6 % (0-2); % Eosinophils 1.3 % (0-6); % Immature Granulocytes 0.4 % (0-0.5); % Lymphocytes 30.9 % (20.5-51.1); % Monocytes 10.6 % (1.7-9.3); % Neutrophils 56.2 % (42.2-75.2); Absolute Eosinophils 0.1 10^3/uL (0-0.7); Absolute Lymphocytes 2.1 10^3/uL (1.2-3.4); Absolute Monocytes 0.7 10^3/uL (0.1-0.6); Absolute Neutrophils 3.9 10^3/uL (1.4-6.5); Hematocrit 31.5 % (37.0-47.0); Hemoglobin 10.3 g/dL (12.0-16.0); Mean Corp Hgb Conc. 32.7 g/dL (33.0-37.0); Mean Corpuscular Hgb 30.7 pg (27.0-31.0); Red Blood Cell Count 3.35 10^6/uL (4.20-5.40); White Blood Cell Count 6.9 10^3/uL (4.8-10.8)
[2023-09-18 08:32] LABS: Mean Platelet Volume 8.8 fL (7.4-10.4); Platelet Count 131 10^3/uL (130-400)
[2023-09-18 08:49] LABS: Iron 67 ug/dl (37-170); Magnesium 1.7 mg/dl (1.6-2.3)
[2023-09-18 08:58] LABS: Percent Saturation 21 % (20-50); Total Iron Binding Capacity 318 ug/dl (265-497)
[2023-09-18 09:43] LABS: ALT (SGPT) 11 U/L (0-35); AST (SGOT) 17 U/L (14-36); Albumin 4.1 g/dl (3.5-5.0); Alkaline Phosphatase 146 U/L (38-126); Blood Urea Nitrogen 9 mg/dl (7-17); Calcium 9.2 mg/dl (8.4-10.2); Carbon Dioxide 22 mmol/L (22-30); Chloride 106 mmol/L (98-107); Estimated Creatinine Clearance 116 ml/min; Glucose 106 mg/dl (70-99); Potassium 3.9 mmol/L (3.5-5.1); Sodium 134 mmol/L (135-145); Total Bilirubin 0.4 mg/dl (0.2-1.3); Total Protein 6.4 g/dl (6.3-8.2); eGFR > 60.00
[2023-09-18 11:09] LABS: Ferritin 41.2 ng/ml (11.1-264.0)
[2023-09-18] MEDS: ALOXI 5 MG IV (11:13)
[2023-09-18] MEDS: DECADRON 52 MG IV (11:14)
[2023-09-18 11:41] LABS: Folate 17.2 ng/ml (2.76-20); Vitamin B12 615 pg/ml (239-931)
[2023-09-18] MEDS: ABRAXANE 39.3999999999999986 MG IV (11:55)
[2023-09-18] MEDS: PARAPLATIN 275.199999999999989 MG IV (12:33)
[2023-09-25 08:05] VITALS: BP 139/70; BMI 34.1
[2023-09-25 08:22] LABS: % Basophils 0.7 % (0-2); % Eosinophils 0.5 % (0-6); % Immature Granulocytes 0.3 % (0-0.5); % Lymphocytes 28.8 % (20.5-51.1); % Monocytes 1.8 % (1.7-9.3); % Neutrophils 67.9 % (42.2-75.2); Absolute Lymphocytes 1.7 10^3/uL (1.2-3.4); Absolute Monocytes 0.1 10^3/uL (0.1-0.6); Absolute Neutrophils 4.1 10^3/uL (1.4-6.5); Hematocrit 29.4 % (37.0-47.0); Hemoglobin 9.9 g/dL (12.0-16.0); Mean Corp Hgb Conc. 33.7 g/dL (33.0-37.0); Mean Corpuscular Hgb 31.2 pg (27.0-31.0); Mean Corpuscular Volume 92.7 fL (81.0-99.0); Platelet Count 121 10^3/uL (130-400); Red Blood Cell Count 3.17 10^6/uL (4.20-5.40); White Blood Cell Count 6.1 10^3/uL (4.8-10.8)
[2023-09-25 08:54] LABS: ALT (SGPT) < 10 U/L (0-35); AST (SGOT) 17 U/L (14-36); Albumin 4.2 g/dl (3.5-5.0); Alkaline Phosphatase 135 U/L (38-126); Blood Urea Nitrogen 12 mg/dl (7-17); Calcium 9.7 mg/dl (8.4-10.2); Carbon Dioxide 21 mmol/L (22-30); Chloride 102 mmol/L (98-107); Estimated Creatinine Clearance 114 ml/min; Glucose 112 mg/dl (70-99); Magnesium 1.8 mg/dl (1.6-2.3); Potassium 3.4 mmol/L (3.5-5.1); Sodium 136 mmol/L (135-145); Total Bilirubin 0.5 mg/dl (0.2-1.3); Total Protein 6.5 g/dl (6.3-8.2); eGFR > 60.00
[2023-09-25] MEDS: DECADRON 52 MG IV (11:05)
[2023-09-25] MEDS: ALOXI 5 MG IV (11:05)
[2023-09-25] MEDS: ABRAXANE 39.3999999999999986 MG IV (11:48)
[2023-09-25] MEDS: PARAPLATIN 274.600000000000023 MG IV (12:33)
[2023-09-25 14:00] VITALS: BP 123/68
[2023-10-02 08:40] VITALS: BP 134/73
[2023-10-02 09:02] LABS: % Basophils 0.8 % (0-2); % Eosinophils 1.1 % (0-6); % Lymphocytes 62.4 % (20.5-51.1); % Monocytes 4.6 % (1.7-9.3); % Neutrophils 31.1 % (42.2-75.2); Absolute Lymphocytes 1.6 10^3/uL (1.2-3.4); Absolute Monocytes 0.1 10^3/uL (0.1-0.6); Hematocrit 29.6 % (37.0-47.0); Hemoglobin 9.9 g/dL (12.0-16.0); Mean Corp Hgb Conc. 33.4 g/dL (33.0-37.0); Mean Corpuscular Hgb 31.6 pg (27.0-31.0); Mean Corpuscular Volume 94.6 fL (81.0-99.0); Mean Platelet Volume 9.1 fL (7.4-10.4); Platelet Count 197 10^3/uL (130-400); Red Blood Cell Count 3.13 10^6/uL (4.20-5.40); White Blood Cell Count 2.6 10^3/uL (4.8-10.8)
[2023-10-02 09:04] VITALS: BMI 33.3
[2023-10-02 09:05] LABS: Absolute Neutrophils 0.8 10^3/uL (1.4-6.5)
[2023-10-02 09:27] LABS: ALT (SGPT) 11 U/L (0-35); AST (SGOT) 19 U/L (14-36); Albumin 4.1 g/dl (3.5-5.0); Alkaline Phosphatase 134 U/L (38-126); Blood Urea Nitrogen 11 mg/dl (7-17); Calcium 9.6 mg/dl (8.4-10.2); Carbon Dioxide 25 mmol/L (22-30); Chloride 107 mmol/L (98-107); Estimated Creatinine Clearance 117 ml/min; Glucose 104 mg/dl (70-99); Magnesium 1.6 mg/dl (1.6-2.3); Potassium 3.6 mmol/L (3.5-5.1); Sodium 137 mmol/L (135-145); Total Bilirubin 0.3 mg/dl (0.2-1.3); Total Protein 6.3 g/dl (6.3-8.2); eGFR > 60.00
== END 2023-10-03 08:26 | disposition home or self-care (01) ==
LOC: OID 08:35
PROVIDERS: ATTENDING PHYSICIAN Internal Medicine Hematology & Oncology
DX: Z51.11 Encounter for antineoplastic chemotherapy (principal); C53.0 Malignant neoplasm of endocervix; D50.0 Iron deficiency anemia secondary to blood loss (chronic)
CPT/HCPCS: 36591; 80053; 82607; 82728; 82746; 83540; 83550; 83735; 85025; 96367; 96368; 96375; 96411; 96413; 96417; J2469; J9045; J9264; J9267

== ENCOUNTER 2023-10-30 07:50 | Outpatient (RCR) | payer OTHER, SELFPAY ==
[2023-10-09 08:45] VITALS: BP 148/56
[2023-10-09 09:07] VITALS: BMI 34.1
[2023-10-09 09:09] LABS: % Basophils 1.2 % (0-2); % Eosinophils 1.2 % (0-6); % Immature Granulocytes 0.8 % (0-0.5); % Lymphocytes 54.9 % (20.5-51.1); % Monocytes 14.3 % (1.7-9.3); % Neutrophils 27.6 % (42.2-75.2); Absolute Lymphocytes 1.3 10^3/uL (1.2-3.4); Absolute Monocytes 0.4 10^3/uL (0.1-0.6); Hematocrit 29.1 % (37.0-47.0); Hemoglobin 9.7 g/dL (12.0-16.0); Mean Corp Hgb Conc. 33.3 g/dL (33.0-37.0); Mean Platelet Volume 8.6 fL (7.4-10.4); Platelet Count 251 10^3/uL (130-400); Red Blood Cell Count 3.03 10^6/uL (4.20-5.40); Red Cell Dist. Width 17.6 % (11.5-14.5)
[2023-10-09 09:10] LABS: Absolute Neutrophils 0.7 10^3/uL (1.4-6.5); White Blood Cell Count 2.4 10^3/uL (4.8-10.8)
[2023-10-09 09:35] LABS: ALT (SGPT) 12 U/L (0-35); AST (SGOT) 21 U/L (14-36); Albumin 3.7 g/dl (3.5-5.0); Alkaline Phosphatase 122 U/L (38-126); Blood Urea Nitrogen 4 mg/dl (7-17); Calcium 9.4 mg/dl (8.4-10.2); Carbon Dioxide 25 mmol/L (22-30); Chloride 106 mmol/L (98-107); Estimated Creatinine Clearance 118 ml/min; Glucose 112 mg/dl (70-99); Magnesium 1.8 mg/dl (1.6-2.3); Potassium 3.9 mmol/L (3.5-5.1); Sodium 135 mmol/L (135-145); Total Bilirubin 0.4 mg/dl (0.2-1.3); Total Protein 6.1 g/dl (6.3-8.2); eGFR > 60.00
[2023-10-16 08:55] VITALS: BP 138/77
[2023-10-16 09:09] LABS: % Basophils 0.3 % (0-2); % Eosinophils 0.6 % (0-6); % Immature Granulocytes 0.9 % (0-0.5); % Lymphocytes 30.2 % (20.5-51.1); % Monocytes 11.5 % (1.7-9.3); % Neutrophils 56.5 % (42.2-75.2); Absolute Monocytes 0.4 10^3/uL (0.1-0.6); Absolute Neutrophils 1.9 10^3/uL (1.4-6.5); Hematocrit 30.1 % (37.0-47.0); Hemoglobin 10.1 g/dL (12.0-16.0); Mean Corp Hgb Conc. 33.6 g/dL (33.0-37.0); Mean Corpuscular Hgb 32.4 pg (27.0-31.0); Mean Corpuscular Volume 96.5 fL (81.0-99.0); Mean Platelet Volume 8.9 fL (7.4-10.4); Platelet Count 177 10^3/uL (130-400); Red Blood Cell Count 3.12 10^6/uL (4.20-5.40); Red Cell Dist. Width 17.5 % (11.5-14.5); White Blood Cell Count 3.3 10^3/uL (4.8-10.8)
[2023-10-16 09:15] VITALS: BMI 33.3
[2023-10-16 09:44] LABS: ALT (SGPT) 10 U/L (0-35); AST (SGOT) 19 U/L (14-36); Albumin 4.4 g/dl (3.5-5.0); Alkaline Phosphatase 119 U/L (38-126); Blood Urea Nitrogen 12 mg/dl (7-17); Calcium 9.9 mg/dl (8.4-10.2); Carbon Dioxide 25 mmol/L (22-30); Chloride 104 mmol/L (98-107); Estimated Creatinine Clearance 117 ml/min; Glucose 98 mg/dl (70-99); Magnesium 1.9 mg/dl (1.6-2.3); Potassium 4.1 mmol/L (3.5-5.1); Sodium 135 mmol/L (135-145); Total Bilirubin 0.4 mg/dl (0.2-1.3); Total Protein 6.7 g/dl (6.3-8.2); eGFR > 60.00
[2023-10-16] MEDS: NSS 1000 IV ×2 (11:13→13:21)
[2023-10-16] MEDS: ALOXI 5 MG IV (11:13)
[2023-10-16] MEDS: DECADRON 52 MG IV (11:14)
[2023-10-16] MEDS: EMEND 150 MG IV (11:43)
[2023-10-16] MEDS: LASIX 20 MG IV (13:21)
[2023-10-16] MEDS: CISPLATIN 580 MG IV (13:27)
[2023-10-16 15:50] VITALS: BP 128/72
[2023-10-23 08:00] VITALS: BP 127/79
[2023-10-23 08:12] VITALS: BMI 33.2
[2023-10-23 08:27] LABS: % Basophils 0.4 % (0-2); % Immature Granulocytes 2.6 % (0-0.5); % Lymphocytes 17.6 % (20.5-51.1); % Monocytes 9.1 % (1.7-9.3); % Neutrophils 68.3 % (42.2-75.2); Absolute Eosinophils 0.1 10^3/uL (0-0.7); Absolute Immature Granulocytes 0.1 10^3/uL (0-0.05); Absolute Lymphocytes 0.9 10^3/uL (1.2-3.4); Absolute Monocytes 0.5 10^3/uL (0.1-0.6); Absolute Neutrophils 3.5 10^3/uL (1.4-6.5); Hematocrit 29.7 % (37.0-47.0); Hemoglobin 10.2 g/dL (12.0-16.0); Mean Corp Hgb Conc. 34.3 g/dL (33.0-37.0); Mean Corpuscular Hgb 33.6 pg (27.0-31.0); Mean Corpuscular Volume 97.7 fL (81.0-99.0); Mean Platelet Volume 9.3 fL (7.4-10.4); Platelet Count 186 10^3/uL (130-400); Red Blood Cell Count 3.04 10^6/uL (4.20-5.40); Red Cell Dist. Width 16.3 % (11.5-14.5); White Blood Cell Count 5.1 10^3/uL (4.8-10.8)
[2023-10-23 08:38] LABS: ALT (SGPT) < 10 U/L (0-35); AST (SGOT) 17 U/L (14-36); Albumin 4.1 g/dl (3.5-5.0); Alkaline Phosphatase 124 U/L (38-126); Blood Urea Nitrogen 10 mg/dl (7-17); Calcium 9.6 mg/dl (8.4-10.2); Carbon Dioxide 25 mmol/L (22-30); Chloride 102 mmol/L (98-107); Estimated Creatinine Clearance 116 ml/min; Glucose 91 mg/dl (70-99); Magnesium 1.6 mg/dl (1.6-2.3); Potassium 4.2 mmol/L (3.5-5.1); Sodium 136 mmol/L (135-145); Total Bilirubin 0.2 mg/dl (0.2-1.3); Total Protein 6.4 g/dl (6.3-8.2); eGFR > 60.00
[2023-10-23] MEDS: NSS 1000 IV ×2 (09:04→11:08)
[2023-10-23] MEDS: ALOXI 5 MG IV (09:29)
[2023-10-23] MEDS: DECADRON 52 MG IV (09:30)
[2023-10-23] MEDS: EMEND 150 MG IV (10:03)
[2023-10-23] MEDS: LASIX 20 MG IV (10:54)
[2023-10-23] MEDS: CISPLATIN 580 MG IV (11:17)
[2023-10-23 14:09] VITALS: BP 136/84
[2023-10-23 16:50] LABS: Free T4 0.76 ng/dl (0.78-2.19)
[2023-10-30 08:00] VITALS: BP 136/82
[2023-10-30 08:23] VITALS: BMI 32.8
[2023-10-30 08:36] LABS: % Basophils 0.4 % (0-2); % Eosinophils 2.1 % (0-6); % Immature Granulocytes 0.9 % (0-0.5); % Lymphocytes 11.4 % (20.5-51.1); % Monocytes 8.8 % (1.7-9.3); % Neutrophils 76.4 % (42.2-75.2); Absolute Eosinophils 0.1 10^3/uL (0-0.7); Absolute Immature Granulocytes 0.1 10^3/uL (0-0.05); Absolute Lymphocytes 0.7 10^3/uL (1.2-3.4); Absolute Monocytes 0.5 10^3/uL (0.1-0.6); Absolute Neutrophils 4.3 10^3/uL (1.4-6.5); Hematocrit 27.8 % (37.0-47.0); Hemoglobin 9.6 g/dL (12.0-16.0); Mean Corp Hgb Conc. 34.5 g/dL (33.0-37.0); Mean Corpuscular Hgb 33.6 pg (27.0-31.0); Mean Corpuscular Volume 97.2 fL (81.0-99.0); Mean Platelet Volume 9.3 fL (7.4-10.4); Platelet Count 121 10^3/uL (130-400); Red Blood Cell Count 2.86 10^6/uL (4.20-5.40); Red Cell Dist. Width 15.6 % (11.5-14.5); White Blood Cell Count 5.7 10^3/uL (4.8-10.8)
[2023-10-30 08:44] LABS: ALT (SGPT) < 10 U/L (0-35); AST (SGOT) 17 U/L (14-36); Alkaline Phosphatase 132 U/L (38-126); Blood Urea Nitrogen 10 mg/dl (7-17); Calcium 9.1 mg/dl (8.4-10.2); Carbon Dioxide 25 mmol/L (22-30); Chloride 100 mmol/L (98-107); Estimated Creatinine Clearance 116 ml/min; Glucose 97 mg/dl (70-99); Magnesium 1.3 mg/dl (1.6-2.3); Potassium 3.2 mmol/L (3.5-5.1); Sodium 133 mmol/L (135-145); Total Bilirubin 0.2 mg/dl (0.2-1.3); Total Protein 6.3 g/dl (6.3-8.2); eGFR > 60.00
[2023-10-30] MEDS: NSS 1000 IV (10:46)
[2023-10-30] MEDS: ALOXI 5 MG IV (10:47)
[2023-10-30] MEDS: DECADRON 52 MG IV (10:47)
[2023-10-30] MEDS: EMEND 150 MG IV (11:14)
[2023-10-30] MEDS: LASIX 20 MG IV (12:24)
[2023-10-30] MEDS: CISPLATIN 580 MG IV (12:46)
[2023-10-30] MEDS: MAGNESIUM SULFATE 1014 MEQ IV (14:13)
[2023-10-30] MEDS: MAGNESIUM SULFATE 1014 GRAMS IV (14:13)
[2023-10-30 16:27] VITALS: BP 118/75
== END 2023-10-31 09:41 | disposition home or self-care (01) ==
LOC: OID 07:50
PROVIDERS: ATTENDING PHYSICIAN Internal Medicine Hematology & Oncology
DX: Z51.11 Encounter for antineoplastic chemotherapy (principal); C53.0 Malignant neoplasm of endocervix; D50.0 Iron deficiency anemia secondary to blood loss (chronic)
CPT/HCPCS: 36591; 80053; 83735; 84439; 84443; 85025; 96361; 96366; 96367; 96375; 96413; J1453; J2469; J9060

== ENCOUNTER 2023-11-13 08:01 | Outpatient (RCR) | payer OTHER, SELFPAY ==
[2023-11-13 08:00] VITALS: BP 141/77
[2023-11-13] MEDS: NSS 1000 IV (08:29)
[2023-11-13 08:44] LABS: % Eosinophils 2.3 % (0-6); % Immature Granulocytes 0.4 % (0-0.5); % Lymphocytes 21.8 % (20.5-51.1); % Monocytes 6.5 % (1.7-9.3); Absolute Eosinophils 0.1 10^3/uL (0-0.7); Absolute Lymphocytes 0.6 10^3/uL (1.2-3.4); Absolute Monocytes 0.2 10^3/uL (0.1-0.6); Absolute Neutrophils 1.8 10^3/uL (1.4-6.5); Hematocrit 23.7 % (37.0-47.0); Hemoglobin 8.3 g/dL (12.0-16.0); Mean Corpuscular Volume 97.1 fL (81.0-99.0); Nucleated Red Blood Cells % 0 %; Red Blood Cell Count 2.44 10^6/uL (4.20-5.40); Red Cell Dist. Width 16.1 % (11.5-14.5); White Blood Cell Count 2.6 10^3/uL (4.8-10.8)
[2023-11-13 08:55] VITALS: BMI 33.9
[2023-11-13 08:58] LABS: ALT (SGPT) < 10 U/L (0-35); AST (SGOT) 16 U/L (14-36); Albumin 3.9 g/dl (3.5-5.0); Alkaline Phosphatase 136 U/L (38-126); Blood Urea Nitrogen 9 mg/dl (7-17); Calcium 9.2 mg/dl (8.4-10.2); Carbon Dioxide 23 mmol/L (22-30); Chloride 106 mmol/L (98-107); Estimated Creatinine Clearance 113 ml/min; Glucose 95 mg/dl (70-99); Magnesium 1.4 mg/dl (1.6-2.3); Potassium 3.8 mmol/L (3.5-5.1); Sodium 137 mmol/L (135-145); Total Bilirubin 0.4 mg/dl (0.2-1.3); Total Protein 6.2 g/dl (6.3-8.2); eGFR > 60.00
[2023-11-13 09:31] LABS: Mean Platelet Volume 11.5 fL (7.4-10.4); Platelet Count 56 10^3/uL (130-400)
--- NOTE | 2023-11-13 10:32 | PTCARENOTE ---
CISPLATIN TREATMENT HELP PER DOMITILA SEGURAIST DUE TO PLATELETS 56. PATIENT WILL RECEIVE POTASSIUM AND MAGNESIUM IV TODAY FOR MAG OF 1.4 AND POTASSIUM OF 3.8. PATIENT TO RETURN IN ONE WEEK TO RE-EVALUATE LABS
[2023-11-13] MEDS: KCL 1014 MEQ IV (10:44)
[2023-11-13] MEDS: KCL 1014 GRAMS IV (10:44)
[2023-11-13 12:55] VITALS: BP 143/68
== END 2023-12-07 23:59 | disposition home or self-care (01) ==
LOC: OID 08:01
PROVIDERS: ATTENDING PHYSICIAN Internal Medicine Hematology & Oncology
DX: Z51.11 Encounter for antineoplastic chemotherapy (principal); C53.0 Malignant neoplasm of endocervix; D50.0 Iron deficiency anemia secondary to blood loss (chronic)
CPT/HCPCS: 80053; 83735; 85025; 96360; 96361; 96365; 96366

== ENCOUNTER → 2024-02-06 09:52 | Outpatient (REF) | payer OTHER, SELFPAY | LOC: PET 09:52 | PROVIDERS: ATTENDING PHYSICIAN Radiology Radiation Oncology | DX: C53.9 Malignant neoplasm of cervix uteri, unspecified (principal) | CPT/HCPCS: 78815; A9552 ==

== ENCOUNTER 2024-02-16 09:57 | Outpatient (RCR) | payer OTHER, SELFPAY ==
[2024-02-16 10:05] VITALS: BP 116/87
[2024-02-16 10:59] LABS: % Basophils 1.1 % (0-2); % Eosinophils 7.1 % (0-6); % Immature Granulocytes 0.9 % (0-0.5); % Monocytes 5.7 % (1.7-9.3); % Neutrophils 67.2 % (42.2-75.2); Absolute Basophils 0.1 10^3/uL (0-0.2); Absolute Eosinophils 0.4 10^3/uL (0-0.7); Absolute Immature Granulocytes 0.1 10^3/uL (0-0.05); Absolute Monocytes 0.3 10^3/uL (0.1-0.6); Absolute Neutrophils 3.8 10^3/uL (1.4-6.5); Hematocrit 33.1 % (37.0-47.0); Hemoglobin 10.9 g/dL (12.0-16.0); Mean Corp Hgb Conc. 32.9 g/dL (33.0-37.0); Mean Corpuscular Hgb 32.4 pg (27.0-31.0); Mean Corpuscular Volume 98.5 fL (81.0-99.0); Mean Platelet Volume 9.8 fL (7.4-10.4); Nucleated Red Blood Cells % 0 %; Platelet Count 208 10^3/uL (130-400); Red Blood Cell Count 3.36 10^6/uL (4.20-5.40); White Blood Cell Count 5.6 10^3/uL (4.8-10.8)
[2024-02-16 11:22] LABS: ALT (SGPT) < 10 U/L (0-35); AST (SGOT) 20 U/L (14-36); Albumin 4.6 g/dl (3.5-5.0); Alkaline Phosphatase 146 U/L (38-126); Blood Urea Nitrogen 12 mg/dl (7-17); Calcium 10.2 mg/dl (8.4-10.2); Carbon Dioxide 24 mmol/L (22-30); Chloride 102 mmol/L (98-107); Glucose 97 mg/dl (70-99); Potassium 4.3 mmol/L (3.5-5.1); Sodium 141 mmol/L (135-145); Total Bilirubin 0.3 mg/dl (0.2-1.3); eGFR > 60.00
[2024-02-16 21:02] LABS: CA 125 < 5.5 U/mL (0-35)
== END 2024-02-17 09:27 | disposition home or self-care (01) ==
LOC: OID 09:57
PROVIDERS: ATTENDING PHYSICIAN Internal Medicine Hematology & Oncology
DX: C53.0 Malignant neoplasm of endocervix (principal)
CPT/HCPCS: 36591; 80053; 85025; 86304

== ENCOUNTER → 2024-04-07 09:22 | Outpatient (REF) | payer OTHER, SELFPAY | LOC: PET 09:22 | PROVIDERS: ATTENDING PHYSICIAN Obstetrics & Gynecology Gynecologic Oncology | DX: C53.0 Malignant neoplasm of endocervix (principal) | CPT/HCPCS: 78815; A9552 ==

== ENCOUNTER → 2024-04-29 08:36 | Outpatient (REF) | payer OTHER, SELFPAY ==
--- NOTE | 2024-04-29 15:06 | OID.BR.INTR ---
[facility] Breast Navigator - Initial
- -
Date of Contact: 04/29/24
Met with patient. Patient given written information on navigator services available at [facility]. Will follow up as needed per protocol.
== END ==
LOC: WDC 08:36
PROVIDERS: ATTENDING PHYSICIAN Surgery
DX: N63.13 Unspecified lump in the right breast, lower outer quadrant (principal)
CPT/HCPCS: 88305; 19083; A4648

== ENCOUNTER 2024-05-10 14:21 | Outpatient (RCR) | payer OTHER, SELFPAY ==
[2024-05-10 14:25] VITALS: BP 150/86
== END 2024-05-11 09:33 | disposition home or self-care (01) ==
LOC: OID 14:21
PROVIDERS: ATTENDING PHYSICIAN Internal Medicine Hematology & Oncology
DX: C53.0 Malignant neoplasm of endocervix (principal); D63.0 Anemia in neoplastic disease
CPT/HCPCS: 96523

== ENCOUNTER → 2024-06-10 15:00 | Outpatient (REF) | payer OTHER, SELFPAY | LOC: MRI 3T 15:00 | PROVIDERS: ATTENDING PHYSICIAN Obstetrics & Gynecology Gynecologic Oncology; PRIMARYCARE PHYSICIAN Family Medicine | DX: D50.0 Iron deficiency anemia secondary to blood loss (chronic) (principal); C53.0 Malignant neoplasm of endocervix; Z12.31 Encounter for screening mammogram for malignant neoplasm of breast | CPT/HCPCS: 72197; A9575 ==

== ENCOUNTER 2024-08-02 14:35 | Outpatient (RCR) | payer OTHER, SELFPAY ==
[2024-08-02 14:40] VITALS: BP 139/74
== END 2024-08-03 07:58 | disposition home or self-care (01) ==
LOC: OID 14:35
PROVIDERS: ATTENDING PHYSICIAN Internal Medicine Hematology & Oncology
DX: C53.0 Malignant neoplasm of endocervix (principal)
CPT/HCPCS: 96523

== ENCOUNTER 2024-10-25 14:28 | Outpatient (RCR) | payer OTHER, SELFPAY ==
[2024-10-25 14:30] VITALS: BP 146/63
== END 2024-10-26 10:32 | disposition home or self-care (01) ==
LOC: OID 14:28
PROVIDERS: ATTENDING PHYSICIAN Internal Medicine Hematology & Oncology
DX: Z45.2 Encounter for adjustment and management of vascular access device (principal); C53.0 Malignant neoplasm of endocervix
CPT/HCPCS: 96523